=== PATIENT | female | born 1995 | race Caucasian/White ===

== ENCOUNTER 2025-05-06 09:38 | Outpatient (CLI) | payer BC, SELFPAY ==
--- OUTSIDE RECORDS SUMMARY | 2025-03-17 14:30 | XMS_ITS | Encounter Summary ---
Author Organization [facility] Address [address] [place] [address] Care Team Providers Care Wool Fleece Sorter Name Role Phone Ольга Garduno Kaylie CROTES Primary Care Provider [phone] Encounter Details Date Type Department Care Team (Latest Contact Info) Description 03/17/2025 3:30 PM EDT Office Visit [facility] [address], [address] [place] [address] Coni Hamm MD [address] [facility] [address] [place] [address] Intermediate uveitis of right eye (Primary Dx); Pseudophakia of right eye; Nuclear sclerotic cataract, left Social History Tobacco Use Types Packs/Day Years Used Date Smoking Tobacco: Every Day Cigarettes 0.3 18.4 Started: 06/04/2009 Passive Smoke Exposure: Current Smokeless Tobacco: Never Comments:Vape sometimes Alcohol Use Standard Drinks/Week Comments Yes 0 (1 standard drink = 0.6 oz pur e alcohol) socially 1-2 a month PHQ-2 Answer Date Recorded Patient Health Questionnaire-2 Score 0 03/05/2025 PHQ-9 Answer Date Recorded Patient Health Questionnaire-9 Score 0 03/05/2025 CAGE ASSESSMENT Answer Date Recorded Cage unable to access Not on file 02/12/2025 Maximum number of drinks you had on a given occasion in the last month? 2 drinks 02/12/2025 How many alcoholic Beverages do you typically drink in a week? 0 - 7 per week 02/12/2025 Have you ever felt you should CUT down on your d rinking? 0 02/12/2025 Have you been ANNOYED by peo ple criticizing your drinking? 0 02/12/2025 Have you felt GUILTY about your drinking? 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 0 02/12/2025 CAGE Questionnaire Score 0 025 Comments No Sex and Gender Information Value Date Recorded Sex Assigned at Female 01/12/2025 11:46 PM EDT Legal Sex Female 8:10 PM EDT Gender Identity Female 01/12/2025 11:46 PM EDT Sexual Orientation Straight 01/12/2025 11 :46 PM EDT documented as of this encounter Miscellaneous Notes * Progress Notes - Coni Hamm MD - 03/17/2025 3:30 PM EDT PMH: GI disturbance (abdominal pain, hematochezia and diarrhea being worked up by GI team) PCP: Ольга Garduno ([facility], ) Intermediate uveitis right eye Vitreous hemorrhage, right eye - resolved Course: - 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 - Per [facility] records --> History of vitreous hemorrhage/PVD 06/2023 and underwent PPV/EL/Kenalog 07/2023 at [facility], was told she had inflammation that led to traction but this is documented as posterior cyclitis - Had worsening of floaters right eye 02/2024, started on PF QID right eye 03/2024 but then stopped due to sensitivity; Seen 04/15/24 by me without activity - Woke up 05/05 with new photophobia, haze, worsening floaters OD - had cells and keratitic precipitate (KP) this visit, started on PF QID and improved - 07/01 quiet OD, stopped durezol three days prior. Pending initiation of Humira biosimilar - 07/[address] Alcantar with recurrent AC/vit cell on durezol every other day; restarted durezol BID;08/[address] Alcaraz and thought to be quiet on durezol BID and Humira. Tapered off of durezol ~09/2024 - GI symptoms improved on Humira, also following with Neurology for migraines - 03/17/[address] surgery with Dr. Sharpe in the interim OD ROS: - POSITIVE (in bold) - recent weight loss/gain, fevers/chills, night sweats, fatigue, generalized weakness, easy bruising/bleeding, tremor, intolerance to heat or cold, raynaud's, sicca symptoms, nasal ulcers, oral ulcer, cold sores, genital ulcers, sinusitis, nose bleeds, difficulty swallowing, chest pain, shortness of breath, wheezing, cough, blood in sputum, nausea, vomiting, abdominal pain, diarrhea, changes in bowel or bladder patterns, change in urine, weakness/numbness/tingling of limbs/digits, muscle pain, joint aches/pains, rash, hives, sun sensitivity, hair loss, skin discoloration,headache-migraine, dizziness, seizure, tinnitus, hearing loss, depression, anxiety, enlarged lymph nodes, tattoos/inflammation of tattoos. - Family History: Sister possible autoimmune condition ?Lupus but not clear diagnosis; brother withCrohn's - Occupation: Works at [employer] - Tobacco: current smoker less than half ppd - Alcohol Use: Social - Drug use: Denies - Pets/animals: Labradoodle - Foreign travel: Denies - STDs: Denies - Marital status: Single; sexually active single male partner, getting 11/2024 - Incarceration: Denies - Heritage: Unknown, - Miscarriages: Denies - Recent Sick Contacts: Denies - Health otherwise: Otherwise well Lab Workup: - 06/09/23 ESR/CRP wnl - 05/13/24: CBC with borderline high lymphocytes otherwise unremarkable, CMP unremarkable. UA positive for nitrites and 1+ WBC with moderate bacteria, negative for protein; follows with urologist forcystitis - 05/2024 Quantiferon negative, HLA-B27 negative, Syphilis non-reactive; CARLOS 39; Urine B2 73 (wnl) - scanned in media tab - 08/2024 duodenal biopsy no evidence of celiac; +reactive gastropathy on stomach biopsy no H pylori Systemic Imaging Workup: - 06/2023 CXR normal mediastinum, no acute CP process - 02/2017 MRI brain w/wo contrast without acute abnormality - 12/08/24 MRI/MRV: MRI BRAIN: No acute abnormality. No white matter disease; MRV HEAD: Markedly hypoplastic left transverse venous sinus, asymmetric to the right side. Otherwise, the venous sinuses are patent. Ophthalmic Imaging: - FA 05/05: Right eye late disc leakage, diffuse peripheral leakage; left eye wnl - ICG 05/05: Few <1/4DD regions of hypoAF both eyes - 03/17/25 Stable OCT Macula Perivascular thickening OD but good contour, no CME; OS stable/wnl Meds topical/local/systemic: - No topical therapy at the moment - Humira biosimilar 40 mg [id number] Impression/PLAN: - DDx: autoimmune/idiopathic; sarcoid but no granulomatous disease thus far detected - Workup unrevealing - Denied IVO 11/17/24 but no auth required at [facility] for IVTA in the future if needed - Quiet off of durezol and on Humira since ~08/2024; systemic symptoms much improved on Humira so she is happy - S/p CE/IOL OD as below - quiet today with periop steroids now completed - Rheum: Dr. Manuel last 03/05/25. Considering family planning and possibly stopping IMT. I would be ok with her stopping IMT but cannot determine if/when a uveitis flare may occur; however, given largely unilateral involvement we could certainly pursue local steroid therapy PRN instead of Humira even if . She has preferred to remain on Humira thus far due to her other systemic symptom improvement on the medication. - Recommend follow up 3month with me sooner PRN, Christianoiners, OCT Mac and FA transit OD PCIOL OD - 02/16/[address] Sharpe - S/p durezol and per-op PO pred - off of drops - Exam quiet, looks great - Follow up as scheduled with Dr. Sharpe for MRx Cataract left eye - Not visually significant, observe Communicated with Dr. Mar Hamm MD Nailing Machine Operator of Ophthalmology Vitreoretinal Surgery Tobacco Cessation: Tobacco Use: High Risk (03/17/2025) Patient History Smoking Tobacco Use: Every Day Smokeless Tobacco Use: Never Passive Exposure: Current The patient has been counseled on tobacco cessation: Yes documented in this encounter Plan of Treatment Upcoming Encounters Date Type Department Care Team (Late st Contact Info) Description 05/07/2025 3:00 PM EST Procedure Visit [facility] [address] [place] [address] Aaron Garcia PA [address] [place] [address] 06/15/2025 3:00 PM EST Office Visit [facility] [address] [address] Coni Hamm MD [address] [facility] [address] [place] [address] 07/03/2025 10:40 AM EST Office Visit [facility] [address] [place] [address] Delia Cleary PA [address] [facility] [address] [place] [address] 09/01/2025 12:20 PM EDT Office Visit [facility] [address] [place] [address] Selene Rayo MD [address] [facility] [address] [place] [id number] documented as of this encounter Procedures Procedure Name Priority Date/Time Associated Diagnosis Comments OCT, RETINA - OU - BOTH EYES Routine 03/17/2025 4:32 PM EDT Intermediate uveitis of right eye documented in this encounter Results * OCT, Retina - OU - Both Eyes (03/17/2025 4:32 PM EDT) Anatomical Region Laterality Modality Head Optical Coherenc e Tomography Narrative 03/17/2025 4:32 PM EDT Right Eye Quality was good. Scan locations included subfoveal. Progression has been stable. Findings include normal foveal contour. Left Eye Quality was good. Scan locations included subfoveal. Progression has been stable. Findings include normal foveal contour. Notes Perivascular thickening OD stable but good contour OS stable/wnl us Coni Hamm MD OPHTH TOMOGRAPHY Final Res ult documented in this encounter Visit Diagnoses Diagnosis Intermediate uveitis of right eye- Primary Pseudophakia of right eye Lens replaced by other means Nuclear sclerotic cataract, left Migraine without aura and without status migrainosus, not intractable- Primary Bilateral occipital neuralgia Myofascial neck pain documented in this encounter Additional Health Concerns Assessment Noted Time PHQ-9 Depression Total Score: 0 03/05/20 25 10:53 AM EDT A fall risk assessment has been complete d for the patient 03/17/2025 3:52 PM EDT A Body Mass Index follow-up plan has been documented for the patient 03/18/2025 8:45 AM EDT documented as of this encounter Care Teams Wool Fleece Sorter Relationship Specialty Start Date End Date Ольга Garduno DO [address] [place] [address] PCP - General 04/15/24 documented as of this encounter
--- OUTSIDE RECORDS SUMMARY | 2025-03-17 14:50 | XMS_ITS | Encounter Summary ---
Author Organization [facility] Address [address] 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 0 02/12/2025 CAGE Questionnaire Score 0 025 Comments No Sex and Gender Information Value Date Recorded Sex Assigned at Female 01/12/2025 11:46 PM EDT Legal Sex Female 8:10 PM EDT Gender Identity Female 01/12/2025 11:46 PM EDT Sexual Orientation Straight 01/12/2025 11 :46 PM EDT documented as of this encounter Plan of Treatment Upcoming Encounters Date Type Department Care Team (Late st Contact Info) Description 05/07/2025 3:00 PM EST Procedure Visit [facility] [address] [place] [address] Aaron Garcia PA [address] [place] [address] 06/15/2025 3:00 PM EST Office Visit [facility] [address] [place] [address] Coni Hamm MD [address] [place] [address] 07/03/2025 10:40 AM EST Office Visit [facility] [address] [place] [address] Delia Cleary PA [address] [place] [address] 09/01/2025 12:20 PM EDT Office Visit [facility] [address] [place] [phone] Selene Rayo MD [address] [place] [address] documented as of this encounter Procedures Procedure [...] ult documented in this encounter Visit Diagnoses Not on filedocumented in this encounter Additional Health Concerns Assessment Noted Time PHQ-9 Depression Total Score: 0 03/05/20 25 10:53 AM EDT A fall risk assessment has been complete d for the patient 03/17/2025 3:52 PM EDT A Body Mass Index follow-up plan has been documented for the patient 03/18/2025 8:45 AM EDT documented as of this encounter Care Teams Bartender Manager Relationship Specialty Start Date End Date Ольга Garduno DO [address] [place] [address] PCP - General 04/15/24 documented as of this encounter
--- OUTSIDE RECORDS SUMMARY | 2025-03-27 14:50 | XMS_ITS | Encounter Summary ---
Author Organization Healthcare Address [address] [place] [address] Care Team Providers Care Material Stress Tester Name Role Phone Laureen Ольга Kaylie CORTES Primary Care Provider [phone] Encounter Details Date Type Department Care Team (Late st Contact Info) Description 03/27/2025 3:50 PM EDT Office Visit [place] [facility] [address] [place] [address] Delia Cleary, PA [address] [place] [address] Myofascial neck pain (Primary Dx); Bilateral occipital neuralgia; Migraine without aura and without status migrainosus, not intractable Social History Tobacco Use Types Packs/Day Years [...] drink 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 Patient identity has been confirmed using name and date of . Patient confirms they are physically located in [place]. The patient has received and understands the [place] Authorizations and Agreements form and consents to the general terms and conditions of care. The patient has received the Consent for Care Using TeleCare. The risk, benefits, and alternatives of care being provided via telecarewere discussed with the patient who understands and agrees to proceed. The patient was seen via audio and video. Mine Mchugh presents via Video for a follow up regarding 1) Migraine Headaches 2) Occipital Neuralgia 3) Myofascial neck pain Patient was last seen by [facility] on 12/19/2024. 09/17/2024 - [facility] - Consult .1) Occipital Neuralgia - RX Tizanidin 2 mg , 1 at bedtime w/ Diclofenac gel or Tylenol; repeat during day if needed- [facility] Tylenol or RX Diclofenac gel 3% - apply at bedtime + Tizanidine; Can be repeated during day if needed. NO NSAIDS due to possible Crohn's Moist heat (shower / heating pad) to affected area Support neck while sleeping (with pillow / towel). Also support neck while sitting up in chair Referral to Physical therapy & Occupational therapy - to evaluate and treat with available modalities for symptoms Refer for Trigger point injections Massage therapy may be helpful Do NOT go to chiropractor 2) Migraine headache, without aura, without status migrainosus, not intractable STOP Emgality RX Ajovy - to replace Emgality, once every 30 days for headache prevention Continue Ubrelvy 100mg prn for headache rescure Discussed Magnesium headache supplement (ie Migravent) w/ Magnesium / CoQ10 / Riboflavin - purchaseover the counter. Take daily. Give at least 2-3 months before making decision on whether it works. 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 Consider yellow filter for screen - to limit eye irritants Schedule MRI brain w/wo contrast and MRV brain - patient request it be done in [place]. Has never had lumbar puncture (patient complain of headache as pressure inside and pushing out. Thought about IIH as cause of headache) 3) Uveitis Continue to follow with Ophthalmology Continue meds as prescribed Review to see if Papiloedema (+/_) is documented 4) Sinus headache - Tylenol sinus/ headache - continue as long as provides relief Consider request for referral to ENT Steam inhalation - at least once a day Continue Allergy meds / consider allergy nasal spray 12/19/2024 - [facility] .1) Occipital Neuralgia - Cont Tizanidine 2 mg , 1 at bedtime w/ Diclofenac gel or Tylenol; repeat during day if needed- [facility]. Still with NO NSAIDS due to possible Crohn's. Tylenol or RX Diclofenac gel 3% - apply at bedtime + Tizanidine; Can be repeated during day if needed. Moist heat (shower / heating pad) to affected area Support neck while sleeping (with pillow / towel). Also support neck while sitting up in chair Has appt 01/22/2025 for Trigger point injections Massage therapy may be helpful Do NOT go to chiropractor 2) Migraine headache, without aura, without status migrainosus, not intractable Ajovy doesn't seem to be working as well as expected. Place order for Vyepti - infusion - Therapy plan order placed Continue Ubrelvy 100mg prn for headache rescue Discussed Magnesium headache supplement (ie Migravent) w/ Magnesium / CoQ10 / Riboflavin - purchaseover the counter. Take daily. Give at least 2-3 months before making decision on whether it works. 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 Consider yellow filter for screen - to limit eye irritants Has never had lumbar puncture (patient complain of headache as pressure inside and pushing out. 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 A thorough workup was performed evaluating for infectious/autoimmune cause. She is currently on steroid eye drops, plans to to see ophthalmology - Followed by Rheumatology - Takes Humira Continue meds as prescribed Review to see if Papiloedema (+/_) is documented 4) Crohn's disease Followed by [facility] Today, patient presents via video unaccompanied to contributes to the history. Pt reports that headaches are better. Has been receiving Infusion (Vyepti) and Trigger Point Injections. Not sure which one is helping. Reports she can tell when it is starting to wear off. Next appt for infusions / trigger point injection are not scheduled until April. They currently are being received within a few weeks of each other. Ubrelvy - for rescue - 'works sometimes'. Last migraine headache - 2 months ago; States headaches seems to be triggered by weather. Headaches over all have improved tremendously - now headache she is having are NOT really MIGRAINES. These 'not a migraine' headaches, occur about 2 times a week. They are usually relieved with tylenol and her migraine cap. She cannot take NSAIDS due to her Crohn's For Occipital neuralgia - Tizanidine works okay, but is only taking 2mg. Discussed with her that this can be increased to 4mg. She will need new prescription. She has some of the Diclofenac gel at home, has not been using it. Recommend using it every night with the Tizanidine. Reports she is on the computer quite a bit at work. She is not sure if she has blue light filter inher current corrective lenses. She recently had surgery for her uveitis. Will get new prescription for corrective lenses soon - will make sure to get Blue light lenses at that time. She does NOT haveyellow filter on her screens. 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 Past Medical History[1] Family History[2] Surgical History[3] Medications Ordered Prior to Encounter[4] Allergies[5] All medications have been reviewed today. Review of Systems As noted in HPI Objective There were no vitals filed for this visit. Physical Exam Exam observed via Zoom TeleHealth GEN: WDWN NAD HENT: ATNC, NECK: Supple, ROM normal RESP: Normal respiratory effort observed. NEURO: MS: Awake, alert, oriented, good fund of knowledge, good mood with appropriate affect. CN: EOMI full and conjugate. No facial droop. Speech and hearing grossly normal. MOTOR: No abnormal movements. GAIT: Not tested Discussion Summary: Past medical history, lab/imaging results, interval history reviewed. Using shared decision making, the following treatment is recommended: 1) Migraine headache without aura, without status migrainosus, not intractable Headache rescue medication: Ubrelvy 100mg po for headache acute treatment Okay for OTC Tylenol Headache prevention Vyepti 300mg/ml every 3 months Keep Headache diary, ie Migraine Tracker:Gisela Recommend Magnesium supplement- (magnesium / CoQ10/ Riboflavin) daily Stay well hydrated, including electrolyte replacement (diluted gatorade) Maintain usual sleep pattern No new imaging, labs, consults or referrals 2) Occipital Neuralgia/ Myofascial neck pain Increase Tizanidine to 4mg - every hs and during day if needed (bid on prescription). + Diclofenac gel - if still has some at home Use moist heat (hot shower/moist heating pad) Support neck while sleeping / sitting up & driving for long periods of time. (Ie travel pillow) Keep appt for Trigger point injections 05/07/2025 3:00pm Recommend spacing Vyepti and Trigger Point Injections about 6 weeks apart. RTC 3months - Assessment and Plan Diagnosis Plan 1. Myofascial neck pain 2. Bilateral occipital neuralgia 3. Migraine without aura and without status migrainosus, not intractable Telehealth Statement Patient Verification Patient identity has been confirmed using name and date of ? Yes Authorizations and Agreements/Telemedicine Consent sent and consent confirmed? Yes Patient Location: Home/Other Patient confirms they are physically located in [place]? Yes If the patient is not physically located in [place], the provider has confirmed with [facility] thatthe provider is authorized to provide services in patient's stated location? N/A Provider Location: [facility] facility Audio and video or audio only? Audio and video Total visit time: 31 minutes [1] Past Medical History: Diagnosis Date Alpha 1-antitrypsin PiMS phenotype 02/12/2025 [id number] deficiency 02/12/2025 Anemia Anxiety Asthma Blindness 07/2023 Cataract 09/2023 Chronic constipation Chronic pain disorder Cigarette smoker 02/12/2025 Cluster headache 2010 Crohn's disease (CMS/HCC) CTS (carpal tunnel syndrome) 01/02/2025 Depression Dry eyes 04/2023 Eye trauma 04/2023 GERD (gastroesophageal reflux disease) GI hemorrhage Headache Headache, tension-type 2010 Hiatal hernia History of postoperative nausea and vomiting With All Prior Surgeries..... Hyperlipidemia 02/12/2025 Insomnia 2012 Intermediate uveitis of right eye Irritable bowel syndrome Joint pain in both hands 01/02/2025 In both hands, arms, legs (especially shins) Low back pain 08/06/24 Migraine Myopathy Nausea and vomiting 10/02/24 Overactive bladder 09/28/2023 Overweight with body mass index (BMI) 25.0-29.9 02/12/2025 Pain in lower back 09/02/2024 Radiates from right above my butt crack around to lower stomach. Recurrent UTI 05/18/21 Retinal hemorrhage 07/2023 Urinary tract infection Urinary tract infectious disease 04/29/20 Viral upper respiratory tract infection 04/29/20 Weakness of limb 2022 [2] Family History Problem Relation Name Age of Onset Cataracts Maternal Grandmother EvelinaMaye Mascorro Macular degeneration Maternal Grandmother EvelinaMaye Mascorro Glaucoma Maternal Grandmother Molly Mascorro Dementia Maternal Grandmother Molly Mascorro 70 - 79 Migraines Maternal Grandmother Molly Mascorro 30 - 39 Cancer Maternal Grandmother Molly Mascorro 60 - 69 Colon cancer Maternal Grandmother Molly Mascorro Myasthenia gravis Maternal Grandfather Kidney disease Mother Mother Migraines Mother Mother 30 - 39 Asthma Father Renato Autoimmune disease Sister Anu 30 - 39 Anxiety disorder Sister Anu 20 - 29 Fibromyalgia Sister Anu 30 - 39 Immunodeficiency Sister Anu 30 - 39 ADD / ADHD Sister Alia 10 - 19 Crohn's disease Brother Renato Cummings 5 Immunodeficiency Brother Renato Cummings 10 - 19 Colon polyps Brother Renato Cummings Autoimmune disease Brother Renato Cummings 5 [3] Past Surgical History: Procedure Laterality Date CATARACT EXTRACTION W/ INTRAOCULAR LENS IMPLANT Right 02/16/2025 CHOLECYSTECTOMY COLONOSCOPY 11/05/2024 ENDOSCOPY N/A 08/12/2024 EYE SURGERY GALLBLADDER SURGERY OTHER SURGICAL HISTORY 05/2023 Galbladder removal VITRECTOMY Left [4] Current Outpatient Medications on File Prior to Visit Medication Sig Dispense Refill Adalimumab-adaz (Hyrimoz) 40 MG/0.4ML solution auto-injector Inject 40 mg under the skin every 14 days. 0.8 mL 3 bisacodyl (Dulcolax) 10 MG suppository Insert 1 suppository into the rectum daily. Use as directed (Patient taking differently: Insert 1 suppository into the rectum as needed. Use as directed) 12 suppository 0 cyproheptadine (Periactin) 4 MG tablet Take 1 tablet by mouth 2 times a day. 180 tablet 4 dicyclomine (Bentyl) 10 MG capsule Take 1 capsule by mouth 3 times a day. As needed for abdominal cramping 90 capsule 2 difluprednate (Durezol) 0.05 % ophthalmic emulsion Administer 1 drop into the right eye 4 times a day. Increase durezol to one drop 4x/day right eye beginning 1 week prior to cataract surgery 15 mL 1 eptinezumab (Vyepti) 100 MG/ML injection Infuse 3 mL into a venous catheter every 3 months. 1 each 3 erythromycin (Romycin) 5 MG/GM ophthalmic ointment Apply 1 Application to right eye 3 times a day. 3.5 g 1 FLUoxetine (PROzac) 40 MG capsule Take 1 capsule by mouth 1 time each day. linaCLOtide (Linzess) 145 MCG capsule Take 1 capsule by mouth daily before breakfast. 30 capsule 11 Lo Loestrin Fe 1 MG-10 MCG / 10 MCG tablet ondansetron ODT (Zofran-ODT) 4 MG disintegrating tablet Dissolve 1 tablet on the tongue every 8 hours as needed for nausea or vomiting. 20 tablet 2 pantoprazole (Protonix) 40 MG EC tablet Take 1 tablet by mouth 1 time each day. predniSONE (Deltasone) 10 MG tablet TAKE 4 TABLETS BY MOUTH DAILY FOR 7 DAYS, THEN 3 TABLETS DAILY FOR 7 DAYS, THEN 2 TABLETS DAILY FOR 7 DAYS, THEN 1 TABLET DAILY FOR 7 DAYS. 70 tablet 0 tiZANidine (Zanaflex) 2 MG tablet TAKE 1 TABLET BY MOUTH IN THE MORNING AND BEFORE BEDTIME 60 tablet 2 traZODone (Desyrel) 50 MG tablet Take by mouth. Trospium Chloride ER 60 MG capsule sustained-release 24 hr Take by mouth 1 (one) time each day. ubrogepant (Ubrelvy) 100 MG tablet Take 1 tablet by mouth as needed for migraine. After 2 hours, a second dose may be taken if needed. Maximum dose: 200 mg in 24-hour period. 10 each 11 No current facility-administered medications on file prior to visit. [5] Allergies Allergen Reactions Latex Hives, Itching and Rash Sulfa Drugs Anxiety, Headache, Hives, Nausea, Palpitations, Unknown - Patient states they do not know rxn details and Rash Sumatriptan Palpitations and Hives Morphine Diarrhea, Headache and Nausea documented in this encounter Plan of Treatment Upcoming Encounters Date Type Department Care Team (Late st Contact Info) Description 05/07/2025 3:00 PM EST Procedure Visit [place] [facility] [address], [address] [place] [address] Aaron Garcia PA [address] [place] [id number] 06/15/2025 3:00 PM EST Office Visit [facility] [address] [place] [address] Coni Hamm MD [address] [place] [address] 07/03/2025 10:40 AM EST Office Visit [facility] [address], [address] [place] [address] Delia Cleary PA [address] [place] [address] 09/01/2025 12:20 PM EDT Office Visit [facility] [address] [place] [address] Selene Rayo MD [address] [place] [address] documented as of this encounter Visit Diagnoses Diagnosis Myofascial neck pain- Primary Bilateral occipital neuralgia Migraine without aura and without status migrainosus, not intractable Migraine without aura and without status migrainosus, not intractable- Primary Bilateral occipital neuralgia Myofascial neck pain documented in this encounter Additional Health Concerns Assessment Noted Time PHQ-9 Depression Total Score: 0 03/05/20 25 10:53 AM EDT A fall risk assessment has been complete d for the patient 03/17/2025 3:52 PM EDT A Body Mass Index follow-up plan has been documented for the patient 03/27/2025 4:48 PM EDT documented as of this encounter Care Teams Material Stress Tester Relationship Specialty Start Date End Date Ольга [place] [address] PCP - General 04/15/24 documented as of this encounter
--- OUTSIDE RECORDS SUMMARY | 2025-04-16 15:00 | XMS_ITS | Encounter Summary ---
Author Organization Healthcare Address [address] [place] [address] Care Team Providers Care Sanitizer Name Role Phone Ольга Garduno DO Primary Care Provider [phone] Reason for Visit * Reason Comments OP Infusion * Episode Based Medications (Routine) - Authorized Specialty Diagnoses / Procedures Referred By Contac t Referred To Contact Infusion Clinic Diagnoses Migraine without aura and without status migrainosus, not intractable Procedures [facility] INJ. EPTINEZUMAB-JJMR 1 MG Delia Cleary, PA [address] [place] [address] Phone: tel: fax: [facility] [address] [place] [address] Phone: tel: fax: Referral ID Status Reason Start Date Expiration Date V isits Requested Visits Authorized [id number] Authorized 12/30/2024 07/01/2026 1 2 Encounter Details Date Type Department Care Team (Latest Contact Info) Description 04/16/2025 3:00 PM EST - 04/16/2025 11:59 PM EST Hospital Encounter [facility] [address] [place] [address] Migraine without aura and without status migrainosus, not intractable (Primary Dx); Migraine without aura, not refractory Discharge Disposition: Home or Self Care Social History Tobacco Use Types Packs/Day Years [...] drink first t destini in the morning (EYE-SOFT CRAB SHEDDER) to steady your nerves or to get rid of a hangover? 0 02/12/2025 CAGE Questionnaire Score 0 025 Comments No Sex and Gender Information Value Date Recorded Sex Assigned at Female 01/12/2025 11:46 PM EDT Legal Sex Female 8:10 PM EDT Gender Identity Female 01/12/2025 11:46 PM EDT Sexual Orientation Straight 01/12/2025 11 :46 PM EDT documented as of this encounter Last Filed Vital Signs Vital Sign Reading Time Taken Comments Blood Pressure 119/76 04/16/2025 4:04 PM EST Pulse 92 04/16/2025 4:04 PM EST Temperature 36.6 C (97.9 F) 04/16/2025 3:09 PM EST Respiratory Rate 16 04/16/2025 3:09 PM EST Oxygen Saturation - - Inhaled Oxygen Concentration - - Weight 64.8 kg (142 lb 13.7 oz) 04/16/2025 3:09 PM EST Height 157.5 cm (5' 2 ) 04/16/2025 3:09 PM EST Body Mass Index 26.13 04/16/2025 3:09 PM EST documented in this encounter Medications at Time of Discharge Adalimumab-adaz (Hyrimoz) 40 MG/0.4ML solution auto-injectorIndica tions:Panuveitis, unspecified laterality Inject 40 mg under the skin every 14 days. 0.8 mL 3 5 bisacodyl (Dulcolax) 10 MG suppository Insert 1 suppository into the rectum daily. Use as directed 12 suppository 5 12/24/19 26 cyproheptadine (Periactin) 4 MG tablet Take 1 tablet by mouth 2 times a day. 180 tablet 4 5 11/22/19 26 dicyclomine (Bentyl) 10 MG capsule Take 1 capsule by mouth 3 times a day. As needed for abdominal cramping 90 capsule 2 5 difluprednate (Durezol) 0.05 % ophthalmic emulsion Administer 1 drop into the right eye 4 times a day. Increase durezol to one drop 4x/day right eye beginning 1 week prior to cataract surgery 15 mL 1 5 eptinezumab (Vyepti) 100 MG/ML injection Infuse 3 mL into a venous catheter every 3 months. 1 each 3 5 erythromycin (Romycin) 5 MG/GM ophthalmic ointment Apply 1 Application to right eye 3 times a day. 3.5 g 1 5 FLUoxetine (PROzac) 40 MG capsule Take 1 capsule by mouth 1 time each day. 4 linaCLOtide (Linzess) 145 MCG capsule Take 1 capsule by mouth daily before breakfast. 30 capsule 11 5 11/06/19 26 Lo Loestrin Fe 1 MG-10 MCG / 10 MCG tablet 0 ondansetron ODT (Zofran-ODT) 4 MG disintegrating tablet Dissolve 1 tablet on the tongue every 8 hours as needed for nausea or vomiting. 20 tablet 2 5 pantoprazole (Protonix) 40 MG EC tablet Take 1 tablet by mouth 1 time each day. 4 tiZANidine (Zanaflex) 2 MG tabletIndications:M yofascial neck pain TAKE 1 TABLET BY MOUTH IN THE MORNING AND BEFORE BEDTIME 60 tablet 2 5 tiZANidine (Zanaflex) 4 MG tablet Take 1 tablet by mouth 2 times a day as needed for muscle spasms. Use every night. 60 tablet 2 5 traZODone (Desyrel) 50 MG tablet Take by mouth. Trospium Chloride ER 60 MG capsule sustained-release 24 hr Take by mouth 1 (one) time each day. 5 ubrogepant (Ubrelvy) 100 MG tablet Take 1 tablet by mouth as needed for migraine. After 2 hours, a second dose may be taken if needed. Maximum dose: 200 mg in 24-hour period. 10 each 11 5 documented as of this encounter Miscellaneous Notes * Yola Wright RN - 04/16/2025 3:31 PM EST Images from the original note were not included. [id number] Eptinezumab-jjmr Injection WHY is this medicine prescribed? Eptinezumab-jjmr injection is used to help prevent migraine headaches (severe, throbbing headaches that may cause nausea and sensitivity to sound or light). Eptinezumab-jjmr injection is in a class of medications called monoclonal antibodies. It works by blocking the action of a certain natural substance in the body that causes migraine headaches. HOW should this medicine be used? Eptinezumab-jjmr injection comes as a solution (liquid) to inject intravenously (into a vein) over 30 minutes by a doctor or nurse in a medical facility or infusion center. It is usually given every 3 months. Your doctor may need to interrupt or stop your infusion if you experience certain side effects. Tell your doctor immediately if you experiences any of the following symptoms during your infusion: itching, rash, flushing, shortness of breath, wheezing, or face swelling. Ask your pharmacist or doctor for a copy of the accounting office manager's information for the patient. Are there OTHER USES for this medicine? This medication may be prescribed for other uses; ask your doctor or pharmacist for more information. What SPECIAL PRECAUTIONS should I follow? Before receiving eptinezumab-jjmr injection, ? tell your doctor or pharmacist if you are allergic to this drug, any part of this drug, or any other drugs, foods or substances. Tell your doctor or pharmacist about the allergy and what symptoms you had. ? tell your doctor and pharmacist what other prescription and nonprescription medications, vitamins, nutritional supplements, and herbal products you are taking or plan to take. ? tell your doctor if you have or have ever had high blood pressure or circulation problems in yourfingers and toes such as Raynaud's disease (fingers and toes feel numb and change skin color to white or blue when exposed to cold temperatures or stress). ? tell your doctor if you are , plan to become , or are . If you become while using eptinezumab-jjmr injection, call your doctor. What SPECIAL DIETARY instructions should I follow? Unless your doctor tells you otherwise, continue your normal diet. What SIDE EFFECTS can this medicine cause? Some side effects can be serious. If you experience any of these symptoms, call your doctor immediately or get emergency medical treatment: ? rash; hives; itching; flushing of the face; swelling of your face, mouth, tongue, or throat; difficulty breathing ? numb, cold, painful, or discolored fingers or toes Eptinezumab-jjmr injection may cause other side effects. Call your doctor if you have any unusual problems while taking this medication. If you experience a serious side effect, you or your doctor may send a report to the Food and Drug Administration's (FDA) MedWatch Adverse Event Reporting program online (https://www.fda.gov/Safety/MedWatch) or by phone ( ). What should I do in case of OVERDOSE? In case of overdose, call the poison control helpline at . Information is also available online at https://www.poisonhelp.org/help. If the victim has collapsed, had a seizure, has trouble breathing, or can't be awakened, immediately call emergency services at 232. What OTHER INFORMATION should I know? Keep all appointments with your doctor. Your blood pressure should be checked regularly. You should keep a headache diary by writing down when you have headaches. Be sure to share this information with your doctor. Keep a written list of all of the prescription and nonprescription (pitq-kvo-rktcmax) medicines, vitamins, minerals, and dietary supplements you are taking. Bring this list with you each time you visit a doctor or if you are admitted to the hospital. You should carry the list with you in case of sulema rgencies. Brand Name(s): ? Vyepti?? This report on medications is for your information only, and is not considered individual patient advice. Because of the changing nature of drug information, please consult your physician or pharmacist about specific clinical use. The [place] [employer] represents that the information provided hereunder was formulated with a reasonable standard of care, and in conformity with professional standards in the field. The [place] [employer] makes no representations or warranties, express or implied, including, but not limited to, any implied warranty of merchantability and/or fitness for a particular purpose, with respect to such information and specifically disclaims all such warranties. Users are advised that decisions regarding drug therapy are complex medical decisions requiring the independent, informed decision of an appropriate health progressive care nurse, and the information is provided for informational purposes only. The entire monograph for a drug should be reviewed for a thorough understanding of the drug's actions, uses and side effects. The [place] [employer] does not endorse or recommend the use of any drug.The information is not a substitute for medical care. AHFS?? Patient Medication Information?. ?? Copyright, 2023. The [employer]??, [address], [address], [place], [place]. All Rights Reserved. Duplication for commercial use must be authorized by [facility]. Selected Revisions: January 16, 2025. AHFS?? Patient Medication Information?. ?? Copyright, 2024 * Progress Notes - Chloe Springer APRN, DNP - 04/16/2025 3:00 PM EST [facility] NOREEN Note I was physically on-site during the entirety of the infusion, and was available to manage acute infusion reactions as needed. Chloe Springer APRN, VI[facility] documented in this encounter Plan of Treatment Upcoming Encounters Date Type Department Care Team (Late st Contact Info) Description 05/07/2025 3:00 PM EST Procedure Visit [facility] [address] [place] [address] Aaron Garcia PA [address] [place] [address] 06/15/2025 3:00 PM EST Office Visit [facility] [address] [facility] [place] [address] Coni Hamm MD [address] [facility] [address] [place] [address] 07/03/2025 10:40 AM EST Office Visit [facility] [address] [place] [address] Delia Cleary PA [address] [facility] [address] [place] [address] 09/01/2025 12:20 PM EDT Office Visit [facility] [address] [place] [address] Selene Rayo MD [address] [facility] [address] [place] [address] documented as of this encounter Visit Diagnoses Diagnosis Migraine without aura and without status migrainosus, not intractable- Primary Migraine without aura, not refractory Migraine without aura and without status migrainosus, not intractable- Primary Bilateral occipital neuralgia Myofascial neck pain documented in this encounter Administered Medications Inactive Administered Medications - up to 3 most recent administrations Medication Order MAR Action Action Date Dose Rate Site eptinezumab (Vyepti) 100 mg in sodium chloride 0.9 % 100 mL IVPB 100 mg, Intravenous, Once, 1 dose, On Jasmin 04/16/25 at 1545, Administer over 30 Minutes, RoutineIndications:Migraine without aura and without status migrainosus, not intractable New Bag 04/16/2025 3:37 PM EST 100 mg 222 mL/hr documented in this encounter Additional Health Concerns Assessment Noted Time PHQ-9 Depression Total Score: 0 03/05/20 25 10:53 AM EDT A fall risk assessment has been complete d for the patient 04/16/2025 3:10 PM EST A Body Mass Index follow-up plan has been documented for the patient 04/16/2025 3:31 PM EST documented as of this encounter Care Teams Sanitizer Relationship Specialty Start Date End Date Ольга Garduno DO [address] [place] [address] PCP - General 04/15/24 documented as of this encounter
--- OUTSIDE RECORDS SUMMARY | 2025-05-06 09:41 | XMS_ITS | Encounter Summary ---
Author Organization [facility] Address [address] [place] [address] Care Team Providers Care Nursing Unit Clerk Name Role Phone Ольга Garduno DO Primary Care Provider Reason for Visit * Reason Onset Date Comments New Med Request 02/26/2025 Encounter Details Date Type Department Care Team (Late st Contact Info) Description 02/26/2025 Telephone [facility] [address] [facility] [place] [address] Ольга Garduno DO [address] [place] [address] New Med Request Social History Tobacco Use Types Packs/Day Years Used Date Smoking Tobacco: Every Day Cigarettes 0.3 10 Smokeless Tobacco: Never Alcohol Use Standard Drinks/Week Comments Not Currently 0 (1 standard drink = 0.6 oz pur e alcohol) ocassionally PHQ-2 Answer Date Recorded Retired PHQ-9: Brief Depression Severity Measure Score 0 08/09/2022 Abuse Screen Answer Date Recorded Feels Unsafe at Home or Work/School no 06/09/2023 Feels Threatened by Someone no 11/2023 Does Anyone Try to Keep You From Having Contact with Others or Doing Things Outside Your Home? no 06/09/2023 Physical Signs of Abuse Present no 06/09/2023 PHQ-2 Answer Date Recorded Patient Health Questionnaire-9 Score 5 01/20/2025 Comments No Sex and Gender Information Value Date Recorded Sex Assigned at Female 08/18/2024 9:36 AM EDT Legal Sex Female 9:22 AM EDT Gender Identity Not on file Sexual Orientation Straight 08/18/2024 9: 36 AM EDT Occupation Industry Job Start Date Job End Date Not on file Not on file Not on file Not on file documented as of this encounter Miscellaneous Notes * Telephone Encounter - Yola Mendes RegSched Rep - 02/26/2025 2:48 PM EDT PATIENT IS GOING TO REACH OUT TO HER SURGEON AND SEE IF THEY WILL HELP HER. IF NOT SHE WILL CALL THE OFFICE BACK IF THEY WONT HELP. * Telephone Encounter - Saul Barajas - 02/26/2025 1:35 PM EDT Caller: Mine Mchugh Relationship: Self Best call back number: [phone] What medication are you requesting: SOMETHING TO TREAT YEAST INFECTION/THRUSH IN MOUTH What are your current symptoms: THRUSH IN MOUTH How long have you been experiencing symptoms: FEW WEEKS Have you had these symptoms before: [x] Yes [] No Have you been treated for these symptoms before: [x] Yes [] No If a prescription is needed, what is your preferred pharmacy and phone number: [id number] - [place], [place] - [address] - [phone] [facility] [phone] Additional notes: PATIENT HAS CALLED REQUESTING IF PCP CAN CALL SOMETHING IN TO TREAT YEAST INFECTION/THRUSH IN MOUTH. PATIENT HAD CATARACT SURGERY AND WAS PUT ON A STEROID AND HAS DEVELOPED THRUSH IN HER MOUTH. PATIENT IS REQUESTING A CALL BACK ISAI TO LET HER KNOW IF SOMETHING WILL BE CALLED INTO PHARMACY. * Telephone Encounter - Saul Barajas - 02/26/2025 1:33 PM EDT PATIENT HAS CALLED AD STATED SHE HAD CATARACT SURGERY LAST WEEK. PATIENT HAS DEVELOPED THRUSH IN MOUTH FORM TAKING STEROID. PATIENT SUFFERS FROM UVITIS. documented in this encounter Plan of Treatment Upcoming Encounters Date Type Department Care Team (Late st Contact Info) Description 05/08/2025 11:45 AM EST Office Visit [facility] [address] [place] [address] Ольга Garduno DO [address] [place] [address] 01/27/2026 8:30 AM EDT Office Visit [facility] [address] [place] [address] Josiane Tanner MD [address] [address] documented as of this encounter Visit Diagnoses Not on filedocumented in this encounter Care Teams Nursing Unit Clerk Relationship Specialty Start Date End Date Ольга Garduno DO [address] [place] [address] PCP - General Family Medicine 05/18/21 documented as of this encounter
--- OUTSIDE RECORDS SUMMARY | 2025-05-06 09:41 | XMS_ITS | Clinical Summary ---
Author Organization [facility] Address [address] [place] [address] Care Team Providers Care Cell Tuber Hand Name Role Phone Ольга Garduno Primary Care Provider Allergies Active Allergy Reactions Criticality Noted Date Comments Sumatriptan Palpitations Low 03/16/2016 Latex Hives,Itching,Rash Medium 2024 Sulfa Antibiotics Hives Low 03/16/2016 Sulfamethoxazole-Trimethoprim Hives 2023 Medications * This document contains information received from the source organization and may not represent a complete record from that organization. albuterol sulfate HFA 108 (90 Base) MCG/ACT inhaler Inhale 2 puffs Every 4 (Four) Hours As Needed for Wheezing or Shortness of Air. 8 g 1 3 Active ubrogepant (Ubrelvy) 100 MG tabletIndications :Acute migraine Take one tablet by mouth at the onset of headache. May repeat in 2 hours if headache persists. No more than 2 doses in 24 hours. 16 tablet 2 4 Active Adalimumab-adaz 40 MG/0.4ML solution auto-injector Inject 40 mg under the skin into the appropriate area as directed. 5 Active dicyclomine (BENTYL) 10 MG capsule Take 1 capsule by mouth. 5 Active trospium 60 MG capsule sustained-release 24 hr capsule Take 1 capsule by mouth Daily. 5 Active pantoprazole (PROTONIX) 40 MG EC tabletIndications :Chronic GERD Take 1 tablet by mouth Daily. 90 tablet 3 5 Active FLUoxetine (PROzac) 40 MG capsuleIndication s:Anxiety Take 1 capsule by mouth Daily. 90 capsule 3 5 Active traZODone (DESYREL) 50 MG tablet TAKE 1-2 TABLETS BY MOUTH EVERY NIGHT 60 tablet 5 5 Active bisacodyl (DULCOLAX) 5 MG EC tablet Take all 4 tablets at 4 PM on day before colonoscopy 5 Active Linzess 145 MCG capsule capsule Take 1 capsule by mouth Every Morning Before Breakfast. Active cyproheptadine (PERIACTIN) 4 MG tablet Take 1 tablet by mouth 2 (Two) Times a Day. 5 026 Active Fremanezumab-vfrm 225 MG/1.5ML solution prefilled syringe Inject 225 mg under the skin into the appropriate area as directed Every 30 (Thirty) Days. 5 Active Lo Loestrin Fe 1 MG-10 MCG / 10 MCG tabletIndications :Encounter for surveillance of contraceptive pills Take 1 tablet by mouth Daily. 84 tablet 3 5 Active ondansetron (ZOFRAN) 4 MG tabletIndications :Nausea TAKE 1 TABLET BY MOUTH EVERY 6 HOURS NEEDED FOR NAUSEA OR VOMITING. 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 She will notify me if current dose is not effective and will increase to 25 mg Anxiety 05/18/2021 Encounters Date Type Department Care Team Description 02/26/2025 Telephone [facility] [address] [address] Ольга Garduno DO New Med Request 02/05/2025 Refill [facility] [address] [address] Aliza Valderrama PA Nausea from Last 3 Months Immunizations Immunization Administration Dates Next Due FluMist 2-49yrs (Nasal) 02/26/2013,05/02/2012 Hepatitis A 08/14/2018,01/28/2018 Hpv9 06/18/2023,12/11/2022,08/24/2022 Meningococcal Conjugate 06/10/2012 Tdap 05/19/2019 Family History Medical History Relation Name Comments Asthma Father Renato Vision loss Maternal Grandmother Molly Mascorro Anxiety disorder Sister Anu Mchugh Breast cancer Neg Hx Colon cancer Neg Hx Ovarian cancer Neg Hx Uterine cancer Neg Hx Relation Name Status Comments Father Renato Alive Maternal Grandmother Molly Mascorro Alive Mother Alive Sister Anu Mchugh Alive Social History Tobacco Use Types Packs/Day Years Used Date Smoking Tobacco: Every Day Cigarettes 0.3 10 Smokeless Tobacco: Never Tobacco Cessation:Ready to Q uit: Not Asked; Counseling Given: Not Answered Alcohol Use Standard Drinks/Week Comments Not Currently [...] file Not on file Not on file Last Filed Vital Signs Vital Sign Reading Time Taken Comments Blood Pressure 110/72 01/21/2025 8:45 AM EDT Pulse 86 08/20/2024 10:11 AM EDT Temperature 36.8 C (98.2 F) 08/20/2024 10:11 AM EDT Respiratory Rate 16 08/20/2024 10:11 AM EDT Oxygen Saturation 96% 08/20/2024 10:11 AM EDT Inhaled Oxygen Concentration - - Weight 64 kg (141 lb) 01/21/2025 8:45 AM EDT Height 157.5 cm (5' 2 ) 01/21/2025 8:45 AM EDT Body Mass Index 25.79 01/21/2025 8:45 AM EDT Plan of Treatment Upcoming Encounters Date Type Department Care Team (Late st Contact Info) Description 05/08/2025 11:45 AM EST Office Visit [facility] [address] [place] [address] Ольга Garduno DO [address] [place] [address] 01/27/2026 8:30 AM EDT Office Visit [facility] OBGYN [address] [place] [address] Josiane Tanner MD [address] [phone] Health Maintenance Due Date Last Done Comments Pneumococcal Vaccine 0-49 (1 of 2 - PCV) 2012 ANNUAL PHYSICAL 01/01/2025 01/02/2024 INFLUENZA VACCINE 01/02/2025 02/13/2018, , 05/02/2012 LIPID PANEL 08/22/2025 08/22/2024, 10/03, 07/13/2021 Annual Gynecologic Pelvic an d Breast Exam 01/22/2026 01/21/2025, 10/26/2020 PAP SMEAR 01/22/2028 01/21/2025, 01/02, 06/18/2023, Additional history exists TDAP/TD VACCINES (2 - Td or Tdap) 05/19/2029 019 HEPATITIS C SCREENING Completed 06/06/2024, 022 Procedures Procedure Name Priority Date/Time Associated Diagnosis Comments SCANNED - IMAGING 04/23/2025 LIQUID-BASED PAP SMEAR WITH HPV GENOTYPING REGARDLESS OF INTERPRETATION, [facility] ([facility]) Routine 01/21/2025 9:57 AM EDT High grade squamous intraepithelial lesion (HGSIL), grade 3 DURGA, on biopsy of cervix Women's annual routine gynecological examination LIPID PANEL WITH LDL/HDL RATIO Routine 08/22/2024 12:01 PM EDT HEPATITIS PANEL, ACUTE Routine 01/10/2022 4:08 PM EDT SCANNED - PAP SMEAR Routine 10/26/2020 12:00 AM EDT from Last 3 Months or Most Recently Relevant to Health Maintenance Results * IMAGING SCANNED (04/23/2025) Anatomical Region Laterality Modality Radiographic Jennifer ging Ольга Garduno DO IMG DIAGNOSTIC IMAGING ORDGregory CRUZ Final Result * LIQUID-BASED PAP SMEAR WITH HPV GENOTYPING REGARDLESS OF INTERPRETATION ([facility]) (01/21/2025 9:57 AM EDT) Reference Lab Report [facility]AL [facility] SPECIALIST CYTOLOGY REPORT ---- DIAGNOSIS: Negative for intraepithelial lesion or malignancy Multiple factors can influence accuracy of Pap tests; therefore, screening at regular intervals is necessary for early cancer detection. ---- Adequacy SATISFACTORY FOR EVALUATION Transformation zone is present. Source CERVICAL/ENDOCERVI GARRETT LMP None provided CLINICAL HISTORY: Routine control pill, HGSIL - grade 3 DURGA on Bx of cervix, Tobacco abuse The pap smear is a screening test with limited sensitivity, and false negative tests results can occur. ThinPrep Pap imagined by Tugg (AI assisted system). Aptima HPV: Negative The Aptima HPV assay is an in vitro nucleic acid amplification test for the qualitative detection of E6/E7 viral messenger RNA from 14 high risk types of HPV in cervical specimens. The high risk HPV types detected include: 16, 18, 31, 33, 35, 39, 45, 51, 52, 56, 58, 59, 66 68 Signed by TOSHA MILLER (ASCP) 01/22/2025 12:54 PM EDT [facility] ThinPrep Vial Collection / Unknown 01/21/2025 9:57 AM EDT 01/21/2025 9:57 AM EDT Josiane Tanner MD PATHOLOGY/CYTOLOGY ORDERABLES Fi nal Result [facility]
[address] [place] [address], * (ABNORMAL) Lipid Panel With LDL / HDL Ratio (08/22/2024 12:01 PM EDT) Total Cholesterol 207(H) 100 - 199 mg/dL [facility] Triglycerides 184(H) 0 - 149 mg/dL [facility] HDL Cholesterol 35(L) >39 mg/dL [facility] VLDL Cholesterol Garrett 33 5 - 40 mg/dL [facility] LDL Chol Calc (NIH) 139(H) 0 - 99 mg/dL [facility] LDL/HDL RATIO 4.0(H) 0.0 - 3.2 ratio [facility] Comment: LDL/HDL Ratio Men Women 1/2 Avg.Risk 1.0 1.5 Avg.Risk 3.6 3.2 2X Avg.Risk 6.2 5.0 3X Avg.Risk 8.0 6.1 08/22/2024 12:0 1 PM EDT 08/22/2024 Narrative [facility] (AMBULATORY) - 08/23/2024 5:07 AM EDT Performed at: 01 [facility] [address] [place] [address] [phone] Neon Sign Installer: Reynold Spence PhD, Phone: [phone] Specimen Comment: A courtesy copy of this report has been sent to [phone] Patient Fasting: Y Ольга Garduno DO LAB BLOOD ORDERABLES Final Result [facility] (AMBULATORY) [address] [place] [address], [facility] [address] [place] [address], * Hepatitis Panel, Acute (01/10/2022 4:08 PM EDT) Hep A IgM Negative Negative [facility] Hepatitis B Surface Ag Negative Negative [facility] Hep B Core IgM Negative Negative [facility] Hepatitis C Ab 0.1 0.0 - 0.9 s/co ratio [facility] 01/10/2022 4:08 PM EDT 01/10/2022 Narrative [facility] (AMBULATORY) - 01/11/2022 9:11 AM EDT Performed at: [address] [place] [address] [place] [address] [phone] Neon Sign Installer: Reynlod Spence PhD, Phone: [phone] Aliza PÉREZ LAB BLOOD ORDERABLES Final Res ult [facility] (AMBULATORY) [address] [place] [address], [facility] [address] [place] [address], [place] [phone] * PAP SMEAR SCANNED (10/26/2020 12:00 AM EDT) Historical Provider MD WRIGHT CHART REVIEW TABS Naz l Result from Last 3 Months or Most Recently Relevant to Health Maintenance Insurance [employer] Member Subscriber Plan / Payer (Ef fective 2023-Present) Name:Mine Mchugh Relation to Subscriber:Self Name:Mchugh Mine Benjamin Payer ID:[id number] (NAIC) Type:Not on file Address: [facility] [id number] [id number] Care Teams Cell Tuber Hand Relationship Specialty Start Date End Date Ольга Garduno DO [address] [place] [address] PCP - General Family Medicine 05/18/21
--- OUTSIDE RECORDS SUMMARY | 2025-05-06 09:42 | XMS_ITS | Encounter Summary ---
Author Organization [facility] Address [address] [place] [address] Care Team Providers Care Boiler Cleaner Name Role Phone Олгьа Garduno DO Primary Care Provider [phone] Encounter Details Date Type Department Care Team (Late st Contact Info) Description 08/26/2024 Results Follow-Up [facility] [address] [facility] [place] [address] Ольга Garduno DO [address] [place] [address] Social History Tobacco Use Types Packs/Day Years [...] 06/09/2023 PHQ-2 Answer Date Recorded Patient Health Questionnaire-2 Score 0 08/20/2024 Comments No Sex and Gender Information Value Date Recorded Sex Assigned at Female 08/18/2024 9:36 AM EDT Legal Sex Female 9:22 AM EDT Gender Identity Not on file Sexual Orientation Straight 08/18/2024 9: 36 AM EDT Occupation Industry Job Start Date Job End Date Not on file Not on file Not on file Not on file documented as of this encounter Plan of Treatment Upcoming Encounters Date Type Department Care Team (Late st Contact Info) Description 05/08/2025 11:45 AM EST Office Visit [facility] [address] [place] [address] Ольга Garduno DO [address] [place] [address] 01/27/2026 8:30 AM EDT Office Visit [facility] O[facility] [address] [place] [address] Josiane Tanner MD [address] [phone] documented as of this encounter Visit Diagnoses Not on filedocumented in this encounter Care Teams Boiler Cleaner Relationship Specialty Start Date End Date Ольга Garduno DO [address] [place] [address] PCP - General Family Medicine 05/18/21 documented as of this encounter
--- OUTSIDE RECORDS SUMMARY | 2025-05-06 09:42 | XMS_ITS | Encounter Summary ---
Author Organization [facility] Address [address] 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) to steady your nerves or to get [...] Description 05/07/2025 3:00 PM EST Procedure Visit [facility] [address], [address] [place] [address] Aaron Garcia PA [address] [facility] [address] [place] [address] 06/15/2025 3:00 PM EST Office Visit [facility] [address] [place] [address] Coni Hamm MD [address] [facility] [address] [place] [address] 07/03/2025 10:40 AM EST Office Visit [facility] [address] [place] [address] Delia Cleary PA [address] [place] [address] 09/01/2025 12:20 PM EDT Office Visit [facility] Medicine Specialties [address], [address] [place] [address] Selene Rayo MD [address] [place] [address] documented as of this encounter Visit Diagnoses Not on filedocumented in this encounter Additional Health Concerns Assessment Noted Time PHQ-9 Depression Total Score: 0 10/02/20 25 10:53 AM EDT A fall risk assessment has been complete d for the patient 04/16/2025 3:10 PM EST A Body Mass Index follow-up plan has been documented for the patient 04/16/2025 3:31 PM EST documented as of this encounter Care Teams Director Of Convention Services Relationship Specialty Start Date End Date Ольга Graduno DO [address] [place] [address] PCP - General 04/15/24 documented as of this encounter
--- OUTSIDE RECORDS SUMMARY | 2025-05-06 09:42 | XMS_ITS | Encounter Summary ---
Author Organization Healthcare Address [address] [place] [address] Care Team Providers Care Escape Wheel Tooth Cutter Name Role Phone LaureenIssac celesitnayla Kaylie CORTES Primary Care Provider [phone] Encounter Details Date Type Department Care Team (Latest Contact Info) Description 09/01/2024 Lab Requisition [facility] [address] [place] [address] Kandi Babcock MD [address] [place] [address] Encounter for screening for upper gastrointestinal disorder Social History Tobacco Use Types Packs/Day Years Used Date Smoking Tobacco: Every Day Cigarettes 0.3 15.9 Started: 2009 Passive Smoke Exposure: Current Smokeless Tobacco: Never Comments:Vape sometimes Alcohol Use Standard Drinks/Week Comments Never 0 (1 standard drink = 0.6 oz pur e alcohol) PHQ-2 Answer Date Recorded Patient Health Questionnaire-2 Score 1 08/29/2024 PHQ-9 Answer Date Recorded Patient Health Questionnaire-9 Score 4 08/29/2024 Comments Unknown Sex and Gender Information Value Date Recorded Sex Assigned at Female 01/12/2025 11:46 PM EDT Legal Sex Female 8:10 PM EDT Gender Identity Female 01/12/2025 11:46 PM EDT Sexual Orientation Straight 01/12/2025 11 :46 PM EDT documented as of this encounter Plan of Treatment Upcoming Encounters Date Type Department Care Team (Late st Contact Info) Description 05/07/2025 3:00 PM EST Procedure Visit [facility] [address] [place] [address] Aaron Garcia PA [address] [place] [address] 06/15/2025 3:00 PM EST Office Visit [facility] [address] [place] [address] Coni Hamm MD [address] [place] [address] 07/03/2025 10:40 AM EST Office Visit [facility] [address], [address] [place] [address] Delia Cleary PA [address] [place] [address] 09/01/2025 12:20 PM EDT Office Visit [facility] Medicine Specialties [address], [address] [place] [address] Selene Rayo MD [address] [facility] [address] [place] [address] documented as of this encounter Procedures Procedure Name Priority Date/Time Associated Diagnosis Comments SURGICAL PATHOLOGY EXAM Routine 09/01/2024 Encounter for screening for upper gastrointestinal disorder documented in this encounter Results * Surgical Pathology Exam (09/01/2024) Case Report Surgical Pathology Case: [id number] Authorizing Provider: Kandi Babcock MD Collected: 09/01/2024 Ordering Location: [facility] Lab Received: 09/01/2024 1330 Pathologist: Ashlee Palacios MD Specimens: A) - Duodenum, duodenum biopsy B) - Gastric, gastric biopsy 09/02/2024 2:08 PM EDT [facility] Final Diagnosis A. SMALL INTESTINE, DUODENUM, BIOPSY: - NO PATHOLOGIC ABNORMALITIES. - NO EVIDENCE OF CELIAC DISEASE. B. STOMACH, BIOPSY: - REACTIVE GASTROPATHY. - NO H. PYLORI ORGANISMS IDENTIFIED ON H&E SLIDE. 09/02/2024 2:08 PM EDT [facility] at 1408 EDT Clinical Information Encounter for screening for upper gastrointestinal disorder Abdominal pain Nausea Normal EGD 09/02/2024 2:08 PM EDT [facility] Gross Description A. DUODENUM BIOPSY Received in formalin labeled duodenum biopsy are 5 scott-brown soft tissue fragments measuring 0.4 to 0.5 cm in greatest dimension. Entirely submitted in cassette A1. Cold Time: 0 Sarah M Teagan B. GASTRIC BIOPSY Received in formalin labeled gastric biopsy are 6 scott-brown soft tissue fragments measuring 0.2 to 0.4 cm in greatest dimension. Entirely submitted in cassette B1 to B2. Cold Time: 0 Sarah M Teagan 09/02/2024 2:08 PM EDT [facility] Note: A resident was involved in the service. I attest I examined the relevant preparations for the specimens and confirmed the diagnosis or interpretation. 09/02/2024 2:08 PM EDT [facility] Tissue Stomach structure / Unknown 09/01/2024 09/01/2024 1:30 PM EDT Tissue specimen (specimen) Stomach structure / Unknown 09/01/2024 09/01/2024 1:30 PM EDT us Knadi Babcock MD LAB PATHOLOGY ORDERABLES Final Result [facility] [address] [place] [address] documented in this encounter Visit Diagnoses Diagnosis Encounter for screening for upper gastrointestinal disorder Migraine without aura and without status migrainosus, not intractable- Primary Bilateral occipital neuralgia Myofascial neck pain documented in this encounter Additional Health Concerns Assessment Noted Time PHQ-9 Depression Total Score: 4 08/30/19 25 3:11 PM EDT A fall risk assessment has been complete d for the patient 08/29/2024 3:10 PM EDT A Body Mass Index follow-up plan has been documented for the patient 08/29/2024 5:08 PM EDT documented as of this encounter Care Teams Escape Wheel Tooth Cutter Relationship Specialty Start Date End Date Ольга Garduno DO [address] [place], [place] [id number] PCP - General 04/15/24 documented as of this encounter
--- OUTSIDE RECORDS SUMMARY | 2025-05-06 09:42 | XMS_ITS | Encounter Summary ---
Author Organization [facility] Address [address] [place] [address] Care Team Providers Care Field Crops Harvest Machine Operator Name Role Phone Ольга Garduno Primary Care Provider Reason for Visit * Reason Comments Med Refill Encounter Details Date Type Department Care Team (Late st Contact Info) Description 07/30/2024 Refill [facility] [address] [place] [address] Nay Smith MD [address] [place] [address] Overactive bladder Social History Tobacco Use Types Packs/Day Years Used Date Smoking Tobacco: Every Day Cigarettes Smokeless Tobacco: Never Alcohol Use Standard Drinks/Week Comments Yes 0 [...] Present no 06/09/2023 PHQ-2 Answer Date Recorded Retired PHQ-9: Brief Depression Severity Measure Score 0 08/31/2023 Comments No Sex and Gender Information Value [...] encounter Miscellaneous Notes * Telephone Encounter - Marlee Johnson RegSched Rep - 07/30/2024 9:08 AM EST CALLED PT TO SET UP A FOLLOW UP FOR MEDICATION REFILL THAT WE GOT REQUESTED. THE PT SAID SHE HAS TRANSFERRED HER CARE OVER TO [facility]. documented in this encounter Plan of Treatment Upcoming Encounters Date Type Department Care Team (Late st Contact Info) Description 05/08/2025 11:45 AM EST Office Visit [facility] [address] [place] [address] Ольга Garduno DO [address] [place] [address] 01/27/2026 8:30 AM EDT Office Visit [facility] [address] [place] [address] [place] [address] [place] [address] documented as of this encounter Visit Diagnoses Diagnosis Overactive bladder Hypertonicity of bladder documented in this encounter Care Teams Field Crops Harvest Machine Operator Relationship Specialty Start Date End Date Ольга Garduno DO [address] [place] [address] PCP - General Family Medicine 05/18/21 documented as of this encounter
--- OUTSIDE RECORDS SUMMARY | 2025-05-06 09:42 | XMS_ITS | Encounter Summary ---
Author Organization [facility] Address [address] 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 RN called patient to complete pre-infusion screening questions. Any side effects after last infusion appt? no Have you been sick recently? no Have you been on antibiotics recently or taking them currently? no Have you been admitted to the hospital or evaluated in the ER recently? no Any new diagnoses? no Have you seen your provider since last infusion? Yes If so, did they want to change medication or dose? No No lab review specified in therapy plan Has your insurance changed since last visit? no For patients prescribed Prolia (denosumab), Evenity (romosozumab), Boniva (ibandronate), or Reclast(zoledronic acid): Any recent or upcoming dental work? N/A N/A At time of screening, patient is appropriate to receive Vyepti infusion. Confirmed date, time, and location of appt with patient.. Interventions: None. Duration of phone call: 3 minutes Yola Wallace RN [facility] documented in this encounter Plan of Treatment Upcoming Encounters Date Type Department Care Team (Late st Contact Info) Description 05/07/2025 3:00 PM EST Procedure Visit [facility] [address], [address]st [place] [address] Aaron Garcia PA [address] [place] [address] 06/15/2025 3:00 PM EST Office Visit [facility] [address] [place] [address] oCni Hamm MD [address] [place] [address] 07/03/2025 10:40 AM EST Office Visit [facility] [address], [address] [place] [address] Delia Cleary PA [address] [place] [address] 09/01/2025 12:20 PM EDT Office Visit [facility] Medicine Specialties [address], [address] [place] [address] Selene Rayo MD [address] [facility] [address] [place] [address] documented as of this encounter [...] documented as of this encounter Care Teams Line Up Examiner Relationship Specialty Start Date End Date Ольга Garduno DO [address] [place] [address] PCP - General 04/15/24 documented as of this encounter
--- OUTSIDE RECORDS SUMMARY | 2025-05-06 09:42 | XMS_ITS | Clinical Summary ---
Author Organization [facility] Address [address] [place] [address] Care Team Providers Care Trousseau Consultant Name Role Phone Laureen Ольга Lott DO Primary Care Provider [phone] Allergies Active Allergy Reactions Criticality Noted Date Comments Latex Hives,Itching,Rash Medium 2024 Morphine Diarrhea,Headache,Nausea Low 02/16/2025 Sulfa Drugs Anxiety,Headache,Hiv es,Nausea,Palpitat ions,Unknown - Patient states they do not know rxn details,Rash Medium 03/19/2023 Sumatriptan Palpitations,Hives Medium 03/16/2016 Medications traZODone (Desyrel) 50 MG tablet Take by mouth. Activ e pantoprazole (Protonix) 40 MG EC tablet Take 1 tablet by mouth 1 time each day. 03/17/20 24 Active FLUoxetine (PROzac) 40 MG capsule Take 1 capsule by mouth 1 time each day. 03/20/20 24 Active Trospium Chloride ER 60 MG capsule sustained-release 24 hr Take by mouth 1 (one) time each day. 06/27/19 25 Active Lo Loestrin Fe 1 MG-10 MCG / 10 MCG tablet 06/19/19 20 Active ubrogepant (Ubrelvy) 100 MG tablet Take 1 tablet by mouth as needed for migraine. After 2 hours, a second dose may be taken if needed. Maximum dose: 200 mg in 24-hour period. 10 each 11 09/18/19 25 Active linaCLOtide (Linzess) 145 MCG capsule Take 1 capsule by mouth daily before breakfast. 30 capsule 11 11/06/19 25 026 Active cyproheptadine (Periactin) 4 MG tablet Take 1 tablet by mouth 2 times a day. 180 tablet 4 11/22/19 25 026 Active tiZANidine (Zanaflex) 2 MG tabletIndications: Myofascial neck pain TAKE 1 TABLET BY MOUTH IN THE MORNING AND BEFORE BEDTIME 60 tablet 2 12/21/19 25 Active bisacodyl (Dulcolax) 10 MG suppository Insert 1 suppository into the rectum daily. Use as directed 12 suppository 12/24/19 25 026 Active Additional Information Patient taking differently:10 mg RectalAs needed, Use as directed, Reported on 03/17/2025 eptinezumab (Vyepti) 100 MG/ML injection Infuse 3 mL into a venous catheter every 3 months. 1 each 3 12/24/19 25 Active difluprednate (Durezol) 0.05 % ophthalmic emulsion Administer 1 drop into the right eye 4 times a day. Increase durezol to one drop 4x/day right eye beginning 1 week prior to cataract surgery 15 mL 1 01/31/20 25 Active erythromycin (Romycin) 5 MG/GM ophthalmic ointment Apply 1 Application to right eye 3 times a day. 3.5 g 1 02/17/20 25 Active ondansetron ODT (Zofran-ODT) 4 MG disintegrating tablet Dissolve 1 tablet on the tongue every 8 hours as needed for nausea or vomiting. 20 tablet 2 02/25/20 25 Active dicyclomine (Bentyl) 10 MG capsule Take 1 capsule by mouth 3 times a day. As needed for abdominal cramping 90 capsule 2 02/25/20 25 Active Adalimumab-adaz (Hyrimoz) 40 MG/0.4ML solution auto-injectorIndic ations:Panuveitis, unspecified laterality Inject 40 mg under the skin every 14 days. 0.8 mL 3 03/05/20 25 Active tiZANidine (Zanaflex) 4 MG tablet Take 1 tablet by mouth 2 times a day as needed for muscle spasms. Use every night. 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 Also notes improvement with stimulant laxative. Will write for bisacodyl 10 mg [place] up to daily. Refer for ARM. May benefit from pelvic floor therapy. Continue linactolide 145 mcg daily. Migraine 10/01/2023 Assessment & Plan (12/29/2024 9:17 AM EDT): Plans to start new medication with neurologist-Te,. 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 Continue cyproheptadine per above. 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 She will notify me if current dose is not effective and will increase to 25 mg Dyspnea 03/09/2020 Viral disease 03/09/2020 Abdominal pain 11/21/2019 Assessment & Plan (12/29/2024 9:17 AM EDT): Resume cyproheptadine, education on slow ramp up to improve tolerability. May help with headaches and has helped with GI pain. Abdominal migraine and cyclic vomiting as well as functional abdominal pain (DGBI diagnosis) are on differential. She has episodic severe pain which is separate from her constipation symptoms. Complete enterography as I am only able to comment that she does not have active Crohn disease on adalimumab. May have sequelae of prior inflammation in small bowel so look forward to results of enterography as bloating may be related to history of stricturing disease. Chronic idiopathic constipation 07/16/2019 Resolved Problems Problem Noted Date Diagnosed Date Resolved Date Alpha 1-antitrypsin PiMS phenotype 02/12/2025 02/12/2025 Nkzhl-5-dweorvpftlp deficiency 02/12/2025 02/12/2025 Cigarette smoker 02/12/2025 02/12/2025 Hyperlipidemia 02/12/2025 02/12/2025 Overweight with body mass in dex (BMI) 25.0-29.9 02/12/2025 02/12/2025 Joint pain in both hands 01/02/202504/2025 Overview (02/12/2025): In both hands, arms, legs (especially shins) Nausea and vomiting 10/02/2024 02/23/20 Pain in lower back 09/02/2024 Overview (02/12/2025): Radiates from right above my butt crack around to lower stomach. Colitis 08/07/2024 02/22/2025 Abdominal pain, vomiting, and diarrhea 2024 02/22/2025 Overactive bladder 09/28/2023 Recurrent UTI 05/18/2021 02/22/2025 Urinary tract infectious disease 04/29/2020 02/22/2025 Viral upper respiratory tract infection 04/29/2020 02/22/2025 Encounters Date Type Department Care Team Description 04/22/2025 Travel 04/16/2025 3:00 PM EST - 04/16/2025 11:59 PM [facility] Hospital Encounter [facility] [address] [place] [phone] Migraine without aura and without status migrainosus, not intractable (Primary Dx); Migraine without aura, not refractory Discharge Disposition: Home or Self Care 04/16/2025 Travel 04/15/2025 Telephone [facility] [address] [place] [address] Yola Wallace RN 03/27/2025 3:50 PM EDT Office Visit [place] [facility] [address] [place] [address] Delia Cleary, PA Myofascial neck pain (Primary Dx); Bilateral occipital neuralgia; Migraine without aura and without status migrainosus, not intractable 03/27/2025 Orders Only [facility] [address] [place] [address] Lorena Manuel DO Pain in left barriga (Primary Dx); Pain in right barriga 03/26/2025 Travel 03/23/2025 Travel 03/17/2025 3:50 PM EDT Ancillary Procedure [facility] [address], [address] [place] [address] 03/17/2025 3:30 PM EDT Office Visit [facility] [place] [address], [address] [place] [address] Coni Hamm MD Intermediate uveitis of right eye (Primary Dx); Pseudophakia of right eye; Nuclear sclerotic cataract, left 03/17/2025 Travel 03/16/2025 Telephone [facility] [address] [place] [address] Reza Sharpe MD 03/15/2025 Travel 03/05/2025 10:45 AM EDT Office Visit [facility] [address] [place] [address] Lorena Manuel DO Chest pain, unspecified type (Primary Dx) 03/05/2025 Telephone [facility] [address] [place] [address] Reza Sharpe MD 03/05/2025 Refill [facility] [address] [place] [phone] Antic, Lorena, DO Panuveitis, unspecified laterality 03/05/2025 Travel 03/05/2025 Refill [facility] [address] [place] [address] Reza Sharpe MD 03/04/2025 Travel 02/27/2025 Orders Only [facility] [address] [place] [address] Coni Hamm MD Oral candidiasis (Primary Dx) 02/26/2025 Orders Only [facility] [address] [place] [address] Coni Hamm MD Oral candidiasis (Primary Dx) 02/24/2025 Refill [facility] [address] [place] [address] Selene Rayo MD 02/23/2025 10:30 AM EDT Office Visit [facility] [address] [place] [address] Reza Sharpe MD Intermediate uveitis of right eye (Primary Dx); Post-operative state 02/23/2025 Travel 02/22/2025 Travel 02/20/2025 Telephone [facility] [address] [place] [address] Melissa Blount RN 02/17/2025 12:45 PM EDT Office Visit [facility] [address] [place] [address] Reza Sharpe MD Post-operative state (Primary Dx) 02/17/2025 12:43 AM EDT - 02/17/2025 2:23 AM EDT Emergency [facility] [address] [place] [address] Everette Martinez MD Irritation of right eye (Primary Dx) Discharge Disposition: Home or Self Care 02/17/2025 Travel 02/17/2025 Ophth Exam [facility] [address] [place] [address] Neymar Watts MD 02/16/2025 7:30 AM EDT - 02/16/2025 8:15 AM EDT Surgery [facility] [address] [place] [phone] Reza Sharpe MD PHACOEMULSIFICATION , CATARACT, ADULT [72690 (CPT ) +1 more] 02/16/2025 7:24 AM EDT Anesthesia Event [facility] [address] [place] [phone] Huseyin hZang MD 02/16/2025 5:44 AM EDT - 02/16/2025 9:00 AM EDT Hospital Encounter [facility] [address] [place] [phone] Reza Sharpe MD Secondary cataract of right eye, unspecified secondary cataract type (Primary Dx) Discharge Disposition: Home or Self Care 02/16/2025 Telephone [facility] [address] [place] [address] Neymar Watts MD 02/16/2025 Travel 02/12/2025 10:01 AM EDT - 02/12/2025 3:45 PM EDT Emergency [facility] [address] [place] [address] Micha Flaherty MD Dahlgren, Amy E, MD Chest pain, unspecified type (Primary Dx) Discharge Disposition: Home or Self Care 02/12/2025 8:15 AM EDT Office Visit [facility] [address] [place] [phone] Lorena Manuel DO Intermediate uveitis of right eye (Primary Dx) 02/12/2025 Refill [facility] [address] [place] [phone] Torrey Moran PharmD Panuveitis, unspecified laterality (Primary Dx) 02/12/2025 Travel 02/05/2025 Travel 02/04/2025 Telephone [facility] [address] [place] [address] Reza Sharpe MD from Last 3 Months Immunizations Immunization Administration Dates Next Due HPV 9-Valent 06/18/2023,12/11/2022,08/24/2022 Hep A, Adult 08/14/2018,01/28/2018 Influenza, Unspecified 02/13/2018 Influenza, live, intranasal 02/26/2013, 2 Meningococcal MCV4O 06/10/2012 Tdap 05/19/2019 Family History Medical History Relation Name Comments Autoimmune disease Brother Renato Cummings Colon polyps Brother Renato Cummings Crohn's disease Brother Renato Tsene Immunodeficiency Brother Renato Cummings Asthma Father Renato Myasthenia gravis Maternal Grandfather Cancer Maternal Grandmother Molly Mascorro Cataracts Maternal Grandmother Molly Mascorro Colon cancer Maternal Grandmother Molly Villavicencio [place] Dementia Maternal Grandmother Molly Villavicencio Subha Glaucoma Maternal Grandmother Molly Villavicencio [place] Macular degeneration Maternal Grandmother Molly Villavicencio Prem staton Migraines Maternal Grandmother Molly Mascorro Kidney disease Mother Mother Migraines Mother Mother Anxiety disorder Sister 1 Anu Autoimmune disease Sister 1 Anu Fibromyalgia Sister 1 Anu Immunodeficiency Sister 1 Anu ADD / ADHD Sister 2 Alia Relation Name Status Comments Brother Renato Cummings Alive Father Renato Maternal Grandfather Maternal Grandmother Molly Mascorro Mother Mother Sister 1 Anu Sister 2 Alia Alive Social History Tobacco Use Types Packs/Day [...] drink first 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 0 02/12/2025 CAGE Questionnaire Score 0 025 Comments No Sex and Gender Information Value Date Recorded Sex Assigned at Female 01/12/2025 11:46 PM EDT Legal Sex Female 8:10 PM EDT Gender Identity Female 01/12/2025 11:46 PM EDT Sexual Orientation Straight 01/12/2025 11 :46 PM EDT Last Filed Vital Signs Vital Sign Reading Time Taken Comments Blood Pressure 119/76 04/16/2025 4:04 PM EST Pulse 92 04/16/2025 4:04 PM EST Temperature 36.6 C (97.9 F) 04/16/2025 3:09 PM EST Respiratory Rate 16 04/16/2025 3:09 PM EST Oxygen Saturation 96% 03/05/2025 10: 50 AM EDT Inhaled Oxygen Concentration - - Weight 64.8 kg (142 lb 13.7 oz) 04/16/2025 3:09 PM EST Height 157.5 cm (5' 2 ) 04/16/2025 3:09 PM EST Body Mass Index 26.13 04/16/2025 3:09 PM EST Plan of Treatment Upcoming Encounters Date Type Department Care Team (Late st Contact Info) Description 05/07/2025 3:00 PM EST Procedure Visit [place] [facility] [address] [place] [address] Aaron Garcia, ELISA [address] [place] [address] 06/15/2025 3:00 PM EST Office Visit [facility] [address] [place] [address] Coni Hamm MD [address] [place] [address] 07/03/2025 10:40 AM EST Office Visit [facility] [address] [place] [address] Delia Cleary PA [address] [place] [address] 09/01/2025 12:20 PM EDT Office Visit [facility] [address], [address] [place] [address] Selene Rayo MD [address] [place] [address] Health Maintenance Due Date Last Done Comments [facility]-/Child/Adol SDOH Screenings 1993 [facility]- SDOH Screenings 08/07/2011 [facility]-Adult SDOH Screenings 08/07/2011 [facility]-Hepatitis B Vaccines (1 of 3 - 19+ 3-dose series) 2012 [facility]-Pneumococcal Vaccine: Pediatrics (0 to 5 Years) and At-Risk Patients (6 to 49 Years) (1 of 2 - PCV) 2012 [facility]-Varicella Vaccines (1 of 2 - 13+ 2-dose series) 03/26/2013 [facility]-HPV/Cotest 08/07/2023 [id number] Vaccine (1 - 2024- season) 2025 [facility]-Influenza Vaccine (#1) 02/02/202502/13, 02/26/2013, 05/02/2012 [facility]-Depression Screening 03/05/2026 03/05/2025, 07/2024 [facility]-Cervical Cancer Screening 01/22/2028 [facility]-Pap Smear 01/22/2028 01/21/2025, 01/02, 06/18/2023, Additional history exists [facility]-DTaP,Tdap,and Td Vaccines (2 - Td or Tdap) 05/19/2029 05/19/2019 [facility]-Zoster Vaccines (1 of 2) 08/07/2043 [facility]-Hepatitis A Vaccines Completed 08/14/2018, 01/03 HPV Vaccines Completed 06/18/2023, 12/02, 08/24/2022 [facility]-Hepatitis C Screening Completed 06/06/2024 [facility]-HIV Screening Completed 12/31/2024 [facility]-Obesity Intervention Completed 025, 03/27/2025, 03/17/2025, Additional history exists [facility]-HIB Vaccines Aged Out No longer e ligible based on patient's age to complete this topic [facility]-IPV Vaccines Aged Out No longer e ligible based on patient's age to complete this topic [facility]-Rotavirus Vaccines Aged Out No lo nger eligible based on patient's age to complete this topic Medical Devices Implanted Type Area Top Installer Device Identifier Shelf Expiration Date Model / Serial / Lot Lens Monofocal Clear [id number] 24.0 - [id number] Implanted:Qty: 1 on 02/16/2025 by Reza Sharpe MD at [facility] Right: Eye [id number] 09/28/2028 [id number].240 / [id number] / [id number] Procedures Procedure Name Priority Date/Time Associated Diagnosis Comments OCT, RETINA - OU - BOTH EYES Routine 03/17/2025 4:32 PM EDT Intermediate uveitis of right eye PB ANESTHESIA PLACEHOLDER Routine 02/16/2025 7:32 AM EDT [place] AN ELECTIVE SUPRAGLOTTIC AIRWAY Routine 02/16/2025 7:32 AM EDT [place] XCAPSL CTRC RMVL INSJ IO LENS PROSTH W/O ECP 02/16/2025 7:21 AM EDT Posterior subcapsular polar senile cataract of right eye [place] XCAPSL CTRC RMVL INSJ IO LENS PROSTH CPLX WO ECP 02/16/2025 7:21 AM EDT Posterior subcapsular polar senile cataract of right eye POCT , URINE Routine 02/16/2025 7:17 AM EDT XR CHEST 2 VIEWS STAT 02/12/2025 11:5 5 AM EDT LACTATE, VENOUS STAT 02/12/2025 10:52 AM EDT EXTRA TUBE GOLD TOP Routine 02/12/2025 1 0:51 AM EDT EXTRA TUBE GOLD TOP Routine 02/12/2025 1 0:51 AM EDT EXTRA TUBES Routine 02/12/2025 10:51 AM EDT MAGNESIUM, PLASMA STAT 02/12/2025 10: 51 AM EDT LIPASE, PLASMA STAT 02/12/2025 10:51 AM EDT C-REACTIVE PROTEIN, PLASMA STAT 02/12/2025 10:51 AM EDT TROPONIN T, HIGH SENSITIVITY, 0 HOUR, PLASMA, REFLEX TO 2 HOUR STAT 02/12/2025 10:51 AM EDT TEST QUALITATIVE PLASMA STAT 02/12/2025 10:51 AM EDT D DIMER, QUANTITATIVE STAT 02/12/2025 10:51 AM EDT PROTHROMBIN TIME(PT) / INR STAT 02/12/2025 10:51 AM EDT CBC WITH AUTO DIFFERENTIAL STAT 02/12/2025 10:51 AM EDT COMPREHENSIVE METABOLIC PANEL, PLASMA STAT 02/12/2025 10:51 AM EDT ECG ADULT STAT 02/12/2025 10:17 AM EDT ED HIV 1/2 ANTIBODY/ANTIGEN SCREEN WITH REFLEX TO HIV I/II DIFFERENTIATION STAT 12/31/2024 5:11 PM EDT ACUTE HEPATITIS PANEL Routine 06/06/2024 1:26 PM EST Intermediate uveitis of right eye from Last 3 Months or Most Recently Relevant to Health Maintenance Results * OCT, Retina - OU - [...] Hamm MD OPHTH TOMOGRAPHY Final Res ult * [place] AN ELECTIVE SUPRAGLOTTIC AIRWAY, PB ANESTHESIA PLACEHOLDER (02/16/2025 7:32 AM EDT) Narrative Jessica Khoury CRNA - 02/16/2025 7:32 AM EDT Jessica Khoury CRNA 02/16/2025 7:36 AM Airway Date/Time: 02/16/2025 7:32 AM Reason: elective Airway not difficult General Information and Staff Patient location during procedure: OR KITCHEN SUPERVISOR: Jessica Khoury CRNA Performed: KITCHEN SUPERVISOR Patient Condition Indications for airway management: anesthesia Patient position: sniffing MILS maintained throughout Final Airway Details Final airway type: LMALMA Size: 4 LMA Type: normal Huseyin Zhang MD ANESTHESIA ORDERABLES Fin al Result * POCT , URINE (02/16/2025 7:17 AM EDT) POCT Test, Urine Negative Males and Non- Females: Negative 02/16/2025 7:24 AM EDT [facility] Trolley Car Overhauler ID Cj Andrews 02/16/2025 7:24 AM EDT HEALTHCARE LAB Device ID [id number] 02/16/2025 7:24 AM EDT [facility]ARE [facility] Urine Urine specimen obtained by clean catch procedure / Unknown 02/16/2025 7:17 AM EDT 02/16/2025 7:24 AM EDT Reza Sharpe MD LAB POINT OF CARE T EST DOCKED DEVICE UNSOLICITED RESULTS Final Result [facility] [address] [place] [address] * XR Chest 2 Views (02/12/2025 11:55 AM EDT) Anatomical Region Laterality Modality Chest Computed Radiogr aphy Impressions 02/12/2025 3:29 PM EDT No acute findings. CRITICAL RESULT: No. COMMUNICATION: Per this written report. By electronically signing this report, I, the attending physician, attest that I have personally reviewed the images/data for the above examination(s) and agree with the final edited report. Drafted by Aditya Gonzalez MD on 02/12/2025 2:11 PM Final report signed by Vilma Campos MD on 02/12/2025 3:29 PM Narrative 02/12/2025 3:29 PM EDT CLINICAL INDICATION: chest pain TECHNIQUE: XR CHEST 2 VIEWS COMPARISON: None. FINDINGS: Cardiac silhouette and mediastinal contours are within normal limits. No consolidation, pleural effusions, or pneumothorax. No acute osseous abnormalities. Procedure Note Vilma Campos MD - 02/12/2025 CLINICAL INDICATION: chest pain TECHNIQUE: XR CHEST 2 VIEWS COMPARISON: None. FINDINGS: Cardiac silhouette and mediastinal contours are within normal limits. Noconsolidation, pleural effusions, or pneumothorax. No acute osseousabnormalities. IMPRESSION: No acute findings. CRITICAL RESULT: No. COMMUNICATION: Per this written report. By electronically signing this report, I, the attending physician, attestthat I have personally reviewed the images/data for the aboveexamination(s) and agree with the final edited report. Drafted by Aditya Gonzalez MD on 02/12/2025 2:11 PM Final report signed by Vilma Campos MD on 02/12/2025 3:29 PM us Virgil PÉREZ IMG XR PROCEDURES Final Result * Lactic acid, venous (02/12/2025 10:52 AM EDT) Lactate, Venous, Whole Blood 1.2 0.5 - 2.2 mmol/L LAB HEMATOLOGY METHOD 02/12/2025 11:10 AM EDT [facility] Blood Venous blood specimen / Unknown Venipuncture / Unknown 02/12/2025 10:52 AM EDT 02/12/2025 11:08 AM EDT us Virgil PÉREZ LAB BLOOD ORDERABLES Final Res ult Performing Organization Address City/[facility]/ZIP Co de Phone Number [facility] [address] [place] [address] * Gold Top (02/12/2025 10:51 AM EDT) Only the most recent of2 resultswithin the time period is included. Pathologist [facility] Extra Hold for add-ons 02/12/2025 2:01 PM EDT [facility] Comment:Auto resulted. Blood Venous blood specimen / Unknown 02/12/2025 10:51 AM EDT 02/12/2025 11:25 AM EDT us Micha Flaherty MD LAB BLOOD ORDERABLES Final Res ult [facility] [address] [place] [address] * Troponin now and 120 min (02/12/2025 10:51 AM EDT) Troponin T, High Sensitivity, 0 Hour <6 <14 ng/L 02/12/2025 11:33 AM EDT [facility] Blood Venous blood specimen / Unknown Venipuncture / Unknown 02/12/2025 10:51 AM EDT 02/12/2025 11:01 AM EDT Virgil PÉREZ LAB BLOOD ORDERABLES Final Res ult Performing Organization Address City/[facility]/ZIP Co de Phone Number [facility] [address] [place] [address] * D-Dimer, Quantitative (02/12/2025 10:51 AM EDT) D Dimer, Quantitative <0.28 <0.50 ug/mL FEU 02/12/2025 11:29 AM EDT [facility] Blood Venous blood specimen / Unknown Venipuncture / Unknown 02/12/2025 10:51 AM EDT 02/12/2025 11:00 AM EDT Narrative [facility] - 02/12/2025 11:29 AM EDT Test performed by STAGO D-dimer assay. Values greater than 0.50 ug/mL FEU should be evaluated for risk stratification of patients with possible venous thromboembolism. In addition to expected elevations following injury or surgery, D-dimer levels increase in normal and increase steadily with normal aging. Values in healthy individuals often exceed the VTE exclusion cutoff value, and should be considered in the clinical context. [facility] PÉREZ LAB BLOOD ORDERABLES Final Res ult Performing Organization Address [facility] Co de Phone Number [facility] [address] [place] [address] * PT-INR (02/12/2025 10:51 AM EDT) Prothrombin Time 13.3 12.0 - 14.3 sec 02/12/2025 11:28 AM EDT [facility] INR 1.0 0.9 - 1.1 02/12/2025 11:28 AM EDT [facility] Blood Venous blood specimen / Unknown Venipuncture / Unknown 02/12/2025 10:51 AM EDT 02/12/2025 11:00 AM EDT Narrative [facility] - 02/12/2025 11:28 AM EDT OPTIMAL INR RANGES FOR PATIENT ON ORAL ANTICOAGULANT THERAPY Prevention of venous thromboembolism INR 2.0 to 3.0 In patients with heart disease: Atrial fibrillation INR 2.0 to 3.0 Valvular heart disease INR 2.0 to 3.0 Tissue heart valves INR 2.0 to 3.0 Mechanical prosthetic valves INR 2.5 to 3.5 Prevention of recurrent NH INR 2.5 to 3.5 us Virgil PÉREZ LAB BLOOD ORDERABLES Final Res ult [facility] [address] [place] [address] * (ABNORMAL) CBC w/diff (02/12/2025 10:51 AM EDT) [facility] Signature WBC Count 7.17 3.70 - 10.30 10*3/uL LAB HEMATOLOGY METHOD 02/12/2025 11:06 AM EDT [facility] RBC Count 3.98 3.90 - 5.20 10*6/uL LAB HEMATOLOGY METHOD 02/12/2025 11:06 AM EDT [facility] HGB 12.4 11.2 - 15.7 g/dL LAB HEMATOLOGY METHOD 02/12/2025 11:06 AM EDT [facility] [facility] HCT 36.1 34.0 - 45.0 % LAB HEMATOLOGY METHOD 02/12/2025 11:06 AM EDT [facility] Platelet Count 330 155 - 369 10*3/uL LAB HEMATOLOGY METHOD 02/12/2025 11:06 AM EDT [facility] MCV 91 79 - 98 fL LAB HEMATOLOGY METHOD 02/12/2025 11:06 AM EDT [facility] MCH 31.2 26.0 - 32.0 pg LAB HEMATOLOGY METHOD 02/12/2025 11:06 AM EDT [facility] MCHC 34.3 30.7 - 35.5 g/dL LAB HEMATOLOGY METHOD 02/12/2025 11:06 AM EDT [facility] RDW 12.1 11.5 - 14.5 % LAB HEMATOLOGY METHOD 02/12/2025 11:06 AM EDT [facility] MPV 8.2(L) 8.8 - 12.5 fL LAB HEMATOLOGY METHOD 02/12/2025 11:06 AM EDT [facility] nRBC 0.0 <=0.0 per 100 WBCs LAB HEMATOLOGY METHOD 02/12/2025 11:06 AM EDT [facility] Differential Type Automated LAB HEMATOLOGY METHOD 02/12/2025 11:06 AM EDT [facility] Neutrophils % 66 % LAB HEMATOLOGY METHOD 02/12/2025 11:06 AM EDT [facility] Lymphocytes % 28 % LAB HEMATOLOGY METHOD 02/12/2025 11:06 AM EDT [facility] Monocytes % 6 % LAB HEMATOLOGY METHOD 02/12/2025 11:06 AM EDT [facility] Eosinophils % 0 % LAB HEMATOLOGY METHOD 02/12/2025 11:06 AM EDT [facility] Basophils % 0 % LAB HEMATOLOGY METHOD 02/12/2025 11:06 AM EDT [facility] Immature Granulocytes % 0 % LAB HEMATOLOGY METHOD 02/12/2025 11:06 AM EDT [facility] Neutrophils Absolute 4.76 1.60 - 6.10 10*3/uL LAB HEMATOLOGY METHOD 02/12/2025 11:06 AM EDT [facility] Lymphocytes Absolute 1.97 1.20 - 3.90 10*3/uL LAB HEMATOLOGY METHOD 02/12/2025 11:06 AM EDT [facility] Monocytes Absolute 0.41 0.30 - 0.90 10*3/uL LAB HEMATOLOGY METHOD 02/12/2025 11:06 AM EDT [facility] Eosinophils Absolute 0.00 0.00 - 0.50 10*3/uL LAB HEMATOLOGY METHOD 02/12/2025 11:06 AM EDT [facility] Basophils Absolute 0.01 0.00 - 0.10 10*3/uL LAB HEMATOLOGY METHOD 02/12/2025 11:06 AM EDT [facility] Immature Granulocytes Absolute 0.02 0.00 - 0.06 10*3/uL LAB HEMATOLOGY METHOD 02/12/2025 11:06 AM EDT [facility] Blood Venous blood specimen / Unknown Venipuncture / Unknown 02/12/2025 10:51 AM EDT 02/12/2025 11:01 AM EDT [facility] - 02/12/2025 11:06 AM EDT Therapeutic decision making should be based on absolute values, rather than percentages. us Virgil PÉREZ LAB BLOOD ORDERABLES Final Res ult [facility] [address] [place] [address] * C-Reactive protein (02/12/2025 10:51 AM EDT) CRP, Plasma <3.0 <=8.0 mg/L 02/12/2025 11:37 AM EDT [facility] Blood Venous blood specimen / Unknown Venipuncture / Unknown 02/12/2025 10:51 AM EDT 02/12/2025 11:01 AM EDT [facility] - 02/12/2025 11:37 AM EDT This CRP test is appropriate for assessment of infection, systemic inflammation and/or tissue injury. To assess cardiovascular disease risk order high sensitivity CRP (CRPH). us Virgil PÉREZ LAB BLOOD ORDERABLES Final Res ult Performing Organization Address [facility] Co de Phone Number [facility] [address] [place] [address] * hCG qualitative (02/12/2025 10:51 AM EDT) [facility] Test Negative Negative 02/12/2025 11:37 AM EDT [facility] Blood Venous blood specimen / Unknown Venipuncture / Unknown 02/12/2025 10:51 AM EDT 02/12/2025 11:01 AM EDT [facility] - 02/12/2025 11:37 AM EDT Reference Range: Males and non- females: Negative. Virgil PÉREZ LAB BLOOD ORDERABLES Final Res ult Performing Organization Address City/[facility]/ZIP Co de Phone Number [facility] [address] [place] [address] * Magnesium (02/12/2025 10:51 AM EDT) Magnesium, Plasma 2.2 1.9 - 2.4 mg/dL 02/12/2025 11:37 AM EDT [facility] Blood Venous blood specimen / Unknown Venipuncture / Unknown 02/12/2025 10:51 AM EDT 02/12/2025 11:01 AM EDT us Virgil PÉREZ LAB BLOOD ORDERABLES Final Res ult Performing Organization Address City/[facility]/ZIP Co de Phone Number [facility] [address] [place] [address] * Lipase (02/12/2025 10:51 AM EDT) Lipase, Plasma 47 19 - 63 U/L 02/12/2025 11:37 AM EDT [facility] Blood Venous blood specimen / Unknown Venipuncture / Unknown 02/12/2025 10:51 AM EDT 02/12/2025 11:01 AM EDT us Virgil PÉREZ LAB BLOOD ORDERABLES Final Res ult Performing Organization Address City/[facility]/ZIP Co de Phone Number [facility] [address] [place] [address] * CMP (02/12/2025 10:51 AM EDT) Glucose, Plasma 96 74 - 99 mg/dL 02/12/2025 11:37 AM EDT [facility] BUN, Plasma 14 7 - 21 mg/dL 02/12/2025 11:37 AM EDT [facility] Creatinine, Plasma 0.69 0.60 - 1.10 mg/dL 02/12/2025 11:37 AM EDT [facility] BUN/Creatinine Ratio 20 02/12/2025 11:37 AM EDT [facility] Sodium, Plasma 140 136 - 145 mmol/L 02/12/2025 11:37 AM EDT [facility] Potassium, Plasma 3.6 3.6 - 4.9 mmol/L 02/12/2025 11:37 AM EDT [facility] Chloride, Plasma 102 97 - 107 mmol/L 02/12/2025 11:37 AM EDT [facility] CO2, Plasma 24 22 - 29 mmol/L 02/12/2025 11:37 AM EDT [facility] Anion Gap 14 6 - 16 mmol/L 02/12/2025 11:37 AM EDT [facility] Total Calcium, Plasma 9.5 8.9 - 10.2 mg/dL 02/12/2025 11:37 AM EDT [facility] Total Protein 7.2 6.3 - 7.9 g/dL 02/12/2025 11:37 AM EDT [facility] Albumin, Plasma 4.4 3.5 - 5.2 g/dL 02/12/2025 11:37 AM EDT [facility] AST, Plasma 13 10 - 35 U/L 02/12/2025 11:37 AM EDT [facility] ALT, Plasma 15 10 - 35 U/L 02/12/2025 11:37 AM EDT [facility] Alkaline Phosphatase, Plasma 57 35 - 104 U/L 02/12/2025 11:37 AM EDT [facility] Total Bilirubin, Plasma 0.3 0.2 - 1.1 mg/dL 02/12/2025 11:37 AM EDT [facility] eGFRcr 119.2 mL/min/1.7 3m*2 02/12/2025 11:37 AM EDT [facility] Comment:Reported eGFRcr in m L/min/1.73m2 is based the CKD-EPI 2020 equation that does not use a race coefficient. Blood Venous blood specimen / Unknown Venipuncture / Unknown 02/12/2025 10:51 AM EDT 02/12/2025 11:01 AM EDT us Virgil PÉREZ LAB BLOOD ORDERABLES Final Res ult [facility] [address] [place] [address] * EKG now - STAT (adult) (02/12/2025 10:17 AM EDT) EKG DIAGNOSIS CLASS Abnormal MUSE ECG Ventricular Rate 68 BPM MUSE ECG Atrial Rate 68 BPM MUSE ECG [place] Interval 156 ms MUSE ECG QRSD Interval 82 ms MUSE ECG QT Interval 416 ms MUSE ECG QTC Interval 442 ms MUSE ECG P Kersey 51 degrees MUSE ECG R Kersey 70 degrees MUSE ECG T Wave Kersey 60 degrees MUSE ECG Diagnosis Normal sinus rhythm MUSE ECG Diagnosis Septal infarct versus changes due to misplaced V1 and V2 above 4th intercostal space MUSE ECG Diagnosis Abnormal ECG MUSE ECG Diagnosis MUSE ECG Diagnosis Confirmed by Aaron Harris ([id number]) on 02/13/2025 5:14:10 PM MUSE ECG 02/12/2025 10:1 7 AM EDT 02/13/2025 5:14 PM EDT Micha Flaherty MD ECG ORDERABLES Final Result MUSE ECG * ED HIV 1/2 Antibody/Antigen Screen w/Reflex to HIV 1/2 Differentiation (12/31/2024 5:11 PM EDT) Pathologist [facility] HIV 1 & 2 Antibody/Antigen Screen Non Reactive Non Reactive 12/31/2024 6:23 PM EDT [facility] Comment:Screening for HIV 1 & 2 antibodies, and P24 antigen is NONREACTIVE. No confirmatory testing is required. Blood Venous blood specimen / Unknown Venipuncture / Unknown 12/31/2024 5:11 PM EDT 12/31/2024 5:30 PM EDT us Michele Palmer DO LAB BLOOD ORDERABLES Final Resu lt [facility] [address] [place] [address] * Hepatitis panel, acute (06/06/2024 1:26 PM EST) Pathologist [facility] Hepatitis B Surf Antigen Negative Negative 06/06/2024 4:46 PM EST [facility] Hepatitis C Antibody Negative Negative 06/06/2024 4:46 PM EST [facility] Hepatitis A Antibody IgM Negative Negative 06/06/2024 4:46 PM EST [facility] Hepatitis B Core Antibody IgM Negative Negative 06/06/2024 4:46 PM EST [facility] Blood Venous blood specimen / Unknown Venipuncture / Unknown 06/06/2024 1:26 PM EST 06/06/2024 1:26 PM EST us Lorena Manuel DO LAB BLOOD ORDERABLES Final Resu lt [facility] [address] [place] [address] from Last 3 Months or Most Recently Relevant to Health [place] [address] ANTH DRUG COPAY ASSISTANCE Care Teams Trousseau Consultant Relationship Specialty Start Date End Date Ольга [place] [address] PCP - General 04/15/24
--- OUTSIDE RECORDS SUMMARY | 2025-05-06 09:42 | XMS_ITS | Clinical Summary ---
Author Organization [facility] Address [address] [place] [phone] Phone Care Team Providers Care Salesperson Wigs Name Role Phone Unavailable Primary Care Provider Unavailabl e Allergies Active Allergy Reactions Criticality Noted Date Comments Sumatriptan Hives Medium 07/16/2019 Sulfa (Sulfonamide Antibiotics) Hives Medium 07/05 Medications pantoprazole (PROTONIX) 40 mg Oral Tablet, Delayed Release (E.C.) Take 40 mg by mouth daily. Active citalopram (CELEXA) 20 mg Oral Tablet Take 20 mg by mouth daily. Active Norethindrn A-E Estradiol-Iron 1 mg-20 mcg (24)/75 mg (4) Oral Tablet Take 1 Tab by mouth daily. Active Active Problems Problem Noted Date Diagnosed Date Chronic idiopathic constipation 07/16/2019 Social History Tobacco Use Types Packs/Day Years Used Date Smoking Tobacco: Never Smokeless Tobacco: Never Sexually Active Control Partners Comments Yes Male Comments Unknown Sex and Gender Information Value Date Recorded Sex Assigned at Not on file Legal Sex Female 2:39 PM EST Gender Identity Not on file Sexual Orientation Not on file Last Filed Vital Signs Vital Sign Reading Time Taken Comments Blood Pressure 120/80 07/16/2019 8:43 AM EST Pulse 78 07/16/2019 8:43 AM EST Temperature - - Respiratory Rate - - Oxygen Saturation 96% 07/16/2019 8:43 AM EST Inhaled Oxygen Concentration - - Weight 67 kg (147 lb 9.6 oz) 07/16/2019 8:43 AM EST Height - - Body Mass Index - - Plan of Treatment Health Maintenance Due Date Last Done Comments Annual Wellness Exam 1996 Hepatitis B Vaccine (1 of 3 - 19+ 3-dose series) 2012 Cervical Cancer Screening 2014 Pap Smear 2014 HPV/Pap Cotest 08/07/2023 COVID-19 Vaccine ( - 2024-2 6 season) 2025 Influenza Vaccine (#1) 2025 DTaP/TDaP/Td (2 - Td or Tdap) 05/19/2029 05/19/2019 Meningococcal B Vaccine Aged Out No l onger eligible based on patient's age to complete this topic Pneumococcal Vaccine 0-49 Aged Out No longer eligible based on patient's age to complete this topic Insurance ANTHEM PPO ANTHEM PPO
--- OUTSIDE RECORDS SUMMARY | 2025-05-06 09:42 | XMS_ITS | Encounter Summary ---
Author Organization Healthcare Address [address] [place] [address] Care Team Providers Care Senior Market Research Analyst Name Role Phone Ольга Garduno DO Primary Care Provider [phone] Encounter Details Date Type Department Care Team (Late st Contact Info) Description 03/27/2025 [facility] Only [facility] [address] [place] [address] Lorena Manuel DO [address] [place] [address] Pain in left barriga (Primary Dx); Pain in right barriga Social History Tobacco Use Types Packs/Day Years [...] drink first t destini in the morning (EYE-GASTROENTEROLOGY TEACHER) to steady your nerves or to [...] Description 05/07/2025 3:00 PM EST Procedure Visit [facility] [address] [place] [phone] Aaron Garcia PA [address] [place] [address] 06/15/2025 3:00 PM EST Office Visit [facility] [address] [place] [address] Coni Hamm MD [address] [address] 07/03/2025 10:40 AM EST Office Visit [facility] [address], [address] [place] [address] Delia Cleary PA [address] [place] [phone] 09/01/2025 12:20 PM EDT Office Visit [facility] Medicine Specialties [address], [address] [place] [address] Selene Rayo MD [address] [place] [address] Scheduled Orders Name Type Priority Associated Diagnoses Orde r Schedule XR Tibia Fibula Right 2+ Views Imaging Routine Pain in right barriga Expected: 03/27/2025 (Approximate), Expires: 09/28/2026 XR Tibia Fibula Left 2+ Views Imaging Routine Pain in left barriga Expected: 03/27/2025 (Approximate), Expires: 09/28/2026 documented as of this encounter Visit Diagnoses Diagnosis Pain in left barriga- Primary Pain in right barriga Migraine without aura and without status migrainosus, [...] documented as of this encounter Care Teams Senior Market Research Analyst Relationship Specialty Start Date End Date Ольга [place] [address] PCP - General 04/15/24 documented as of this encounter
--- OUTSIDE RECORDS SUMMARY | 2025-05-06 09:42 | XMS_ITS | Encounter Summary ---
Author Organization [facility] Address [address] [place] [address] Care Team Providers Care Supervisor Belt And Link Assembly Name Role Phone Ольга Garduno DO Primary Care Provider [phone] Encounter Details Date Type Department Care Team (Latest Contact Info) Description 03/26/2025 Travel Social History Tobacco Use Types Packs/Day [...] drink first t destini in the morning (EYE-COMMUNITY YOUTH SECRETARY) to steady your nerves or to get [...] Description 05/07/2025 3:00 PM EST Procedure Visit [facility] [address] [place] [address] Aaron Garcia PA [address] [facility] [address] [place] [address] 06/15/2025 3:00 PM EST Office Visit [facility] [address] [facility] [place] [address] Coni Hamm MD [address] [facility] [address] [place] [address] 07/03/2025 10:40 AM EST Office Visit [facility] [address], [address] [place] [address] Delia Cleary PA [address] [place] [address] 09/01/2025 12:20 PM EDT Office Visit [facility] Medicine Specialties [address] [place] [address] Selene Rayo MD [address] [place] [address] documented as of this encounter [...] documented as of this encounter Care Teams Supervisor Belt And Link Assembly Relationship Specialty Start Date End Date Ольга Garduno DO [address] [place] [address] PCP - General 04/15/24 documented as of this encounter
--- OUTSIDE RECORDS SUMMARY | 2025-05-06 09:42 | XMS_ITS | Encounter Summary ---
Author Organization [facility] Address [address] [place] [address] Care Team Providers Care Development Technician Name Role Phone Ольга Garduno DO Primary Care Provider Encounter Details Date Type Department Care Team (Latest Contact Info) Description 03/23/2025 Travel Social History Tobacco Use Types Packs/Day [...] drink first t destini in the morning (EYE-INTERNAL CARVER) to steady your nerves or to get [...] Description 05/07/2025 3:00 PM EST Procedure Visit [facility] [address], [address] [place] [address] Aaron Garcia PA [address] [facility] [address] [place] [address] 06/15/2025 3:00 PM EST Office Visit [facility] [address] [facility] [place] [address] Coni Hamm MD [address] [facility] [address] [place] [address] 07/03/2025 10:40 AM EST Office Visit [facility] [address] [place] [address] Delia Cleary PA [address] [place] [address] 09/01/2025 12:20 PM EDT Office Visit [facility] Medicine Specialties [address] [place] [address] Selene Rayo MD [address] [place] [address] documented as of this encounter [...] documented as of this encounter Care Teams Development Technician Relationship Specialty Start Date End Date Ольга Garduno DO [address] [place] [address] PCP - General 04/15/24 documented as of this encounter
--- OUTSIDE RECORDS SUMMARY | 2025-05-06 09:42 | XMS_ITS ---
Author Organization [facility] Address [address] [place] [address] Care Team Providers Care Commercial Reporter Name Role Phone Laureen Ольга Lott DO Primary Care Provider [phone] Active Problems Problem Noted Date Diagnosed Date [...] laxative. Will write for bisacodyl 10 mg MS up to daily. Refer for ARM. May benefit from pelvic floor therapy. Continue linactolide 145 mcg daily. Migraine 10/01/2023 Assessment & Plan (12/29/2024 9:17 AM EDT): Plans to start new medication with neurologist-Te,. 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 Continue cyproheptadine per above. 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 Chronic idiopathic constipation 07/16/2019 Current Treatment and Therapy Plans No current plan information found. Other Current Plans Eptinezumab-jjmr (Vyepti)* Plan Start Date:01/22/2025 Plan Provider:Delia Cleary PA Linked Problems Migraine without aura and wi thout status migrainosus, not intractable Treatment Medications No medications scheduled. Line Care (Peripheral)* Plan Start Date:01/22/2025 Plan Provider:Delia Cleary PA Linked Problems Migraine without aura, not r efractory Treatment Medications No medications scheduled. 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
--- OUTSIDE RECORDS SUMMARY | 2025-05-06 09:42 | XMS_ITS | Encounter Summary ---
Author Organization [facility] Address [address] [place] [address] Care Team Providers Care Plumbing Designer Name Role Phone Ольга Garduno DO Primary Care Provider [phone] Encounter Details Date Type Department Care Team (Latest Contact Info) Description 03/17/2025 Travel Social History Tobacco Use Types Packs/Day [...] drink first t destini in the morning (EYE-BACTERIOLOGY TEACHER) to steady your nerves or to [...] Description 05/07/2025 3:00 PM EST Procedure Visit [facility] [address] [place] [address] Aaron Garcia PA [address] [facility] [address] [place] [address] 06/15/2025 3:00 PM EST Office [facility] [address] [place] [address] Coni Hamm MD [address] [facility] [address] [place] [address] 07/03/2025 10:40 AM EST Office Visit [facility] [address] [place] [address] Delia Cleary PA [address] [place] [address] 09/01/2025 12:20 PM EDT Office Visit [facility] Medicine Specialties [address], [address] [place] [address] Selene Rayo MD [address] [place] [address] documented as of this encounter [...] documented as of this encounter Care Teams Plumbing Designer Relationship Specialty Start Date End Date Ольга Garduno DO [address] [place] [address] PCP - General 04/15/24 documented as of this encounter
--- OUTSIDE RECORDS SUMMARY | 2025-05-06 09:42 | XMS_ITS | Clinical Summary ---
Author Organization [facility] Address [address] [facility] [address] [place] [address] Care Team Providers Care Coding Quality Coordinator Name Role Phone Ольга Garduno Primary Care Provider [phone] Social History Tobacco Use Types Packs/Day Years Used Date Smoking Tobacco: Never Assessed Comments Unknown Sex and Gender Information Value Date Recorded Sex Assigned at Not on file Legal Sex Female 9:17 AM EDT Gender Identity Not on file Sexual Orientation Not on file Plan of Treatment Health Maintenance Due Date Last Done Comments HIV Screening 1993 Hepatitis C Screening 1993 Lipid Panel 1993 MMR Vaccines (1 of 1 - Standard series) 1994 Varicella Vaccines (1 of 2 - 13+ 2-dose series) 2006 Hepatitis B Screening 08/07/2011 DTaP/Tdap/Td Vaccines (1 - Tdap) 2012 Hepatitis B Vaccines (1 of 3 - 19+ 3-dose series) 2012 Pap Smear 2014 HPV Vaccines (1 - 3-dose SCD M series) 2020 Cervical Cancer Screening 08/07/2023 HPV/Cotest 08/07/2023 Depression Risk Screening 06/04/2024 SDOH Screening 06/04/2024 COVID-19 Vaccine ( - 2024-2 6 season) 2025 Influenza Vaccine (#1) 2025 3, 05/02/2012 Zoster Vaccines (1 of 2) 08/07/2043 HIB Vaccines Aged Out No longer eligi ble based on patient's age to complete this topic Hepatitis A Vaccines Aged Out No long er eligible based on patient's age to complete this topic IPV Vaccines Aged Out No longer eligi ble based on patient's age to complete this topic Meningococcal B Vaccine Aged Out No l onger eligible based on patient's age to complete this topic Meningococcal Vaccine Aged Out No bernabe jennifer eligible based on patient's age to complete this topic Pneumococcal Vaccine Aged Out No long er eligible based on patient's age to complete this topic Rotavirus Vaccines Aged Out No longer eligible based on patient's age to complete [place] [address] ANTH Care Teams Coding Quality Coordinator Relationship Specialty Start Date End Date Ольга Garduno DO [address] [facility] [place] [address] PCP - General Family Medicine 08/02/24
--- OUTSIDE RECORDS SUMMARY | 2025-05-06 09:42 | XMS_ITS | Encounter Summary ---
Author Organization [facility] Address [address] [place] [address] Care Team Providers Care Cloth Washer Name Role Phone Ольга Garduno DO Primary Care Provider [phone] Encounter Details Date Type Department Care Team (Latest Contact Info) Description 04/16/2025 Travel Social History Tobacco Use Types Packs/Day [...] drink first t destini in the morning (EYE-CAR GROOMER) to steady your nerves or to get [...] Description 05/07/2025 3:00 PM EST Procedure Visit [facility] [address] [place] [address] Aaron Garcia PA [address] [facility] [address] [place] [address] 06/15/2025 3:00 PM EST Office Visit [facility] [address] [place] [address] Coni Hamm MD [address] [facility] [address] [place] [address] 07/03/2025 10:40 AM EST Office Visit [facility] [address] [place] [address] Delia Cleary PA [address] [place] [address] 09/01/2025 12:20 PM EDT Office Visit [facility] Medicine Specialties [address] [place] [address] Selene Rayo MD [address] [place] [address] documented as of this encounter [...] documented as of this encounter Care Teams Cloth Washer Relationship Specialty Start Date End Date Ольга Garduno DO [address] [place] [address] PCP - General 04/15/24 documented as of this encounter
--- OUTSIDE RECORDS SUMMARY | 2025-05-06 09:43 | XMS_ITS | Encounter Summary ---
Author Organization Healthcare Address [address] [place] [address] Care Team Providers Care Ampoule Washing Machine Operator Name Role Phone Laureen Ольгаkacie Lott DO Primary Care Provider [phone] Encounter Details Date Type Department Care Team (Late st Contact Info) Description 03/16/2025 Telephone IR [facility] [address] [place] [address] Reza Sharpe MD [address] [address] Social History Tobacco Use Types Packs/Day Years [...] drink first t destini in the morning (EYE-SALES LEADER) to steady your nerves or to get [...] encounter Miscellaneous Notes * Telephone Encounter - Pau Box - 03/16/2025 8:39 AM EDT Clinical Concern/Question Reason for Call: Asking for her post op appointment on 03/19 to be as late in the afternoon as possible Best contact number: [phone] (mobile) Optimal time of day to reach caller: ANYTIME Additional comments/information from caller: None Note: Please do not reply to this message. Follow-up communication and further actions as a result of this message need to be communicated with the patient directly, if the patient is not active onMyChart. If the patient is active on MyChart, they will receive notification of the communication/outcome via MyChart. documented in this encounter Plan of Treatment Upcoming Encounters Date Type Department Care Team (Late st Contact Info) Description 05/07/2025 3:00 PM EST Procedure Visit [place] [facility] [address], [address] [place] [address] Aaron Garcia, ELISA [address] [place] [address] 06/15/2025 3:00 PM EST Office Visit [facility] [address] [place] [address] Coni Hamm MD [address] [place] [address] 07/03/2025 10:40 AM EST Office Visit [facility] [address] [place] [address] Delia Cleary PA [address] [place] [address] 09/01/2025 12:20 PM EDT Office Visit [facility] [address], [address] [place] [address] Selene Rayo MD [address] [place] [address] documented as of this encounter Visit Diagnoses Not on filedocumented in this encounter Additional Health Concerns Assessment Noted Time PHQ-9 Depression Total Score: 0 03/05/20 25 10:53 AM EDT A fall risk assessment has been complete d for the patient 03/05/2025 10:53 AM EDT A Body Mass Index follow-up plan has been documented for the patient 03/05/2025 12:02 PM EDT documented as of this encounter Care Teams Ampoule Washing Machine Operator Relationship Specialty Start Date End Date Ольга Garduno DO [address] [place] [address] PCP - General 04/15/24 documented as of this encounter
--- OUTSIDE RECORDS SUMMARY | 2025-05-06 09:43 | XMS_ITS | Encounter Summary ---
Author Organization Healthcare Address [address] [place] [address] Care Team Providers Care Relief Pilot Name Role Phone Ольга Garduno DO Primary Care Provider [phone] Encounter Details Date Type Department Care Team (Late st Contact Info) Description 02/17/2025 Ophth Exam [facility] [address] [place] [address] Neymar Watts MD [address] [place] [address] Social History Tobacco Use Types Packs/Day Years Used Date Smoking Tobacco: Every Day Cigarettes 0.3 18.4 Started: 06/04/2009 Passive Smoke Exposure: Current Smokeless Tobacco: Never Comments:Vape sometimes Alcohol Use Standard Drinks/Week Comments Yes 0 (1 standard drink = 0.6 oz pur e alcohol) socially 1-2 a month PHQ-2 Answer Date Recorded Patient Health Questionnaire-2 Score 0 12/23/2024 PHQ-9 Answer Date Recorded Patient Health Questionnaire-9 Score 0 12/23/2024 CAGE ASSESSMENT Answer Date Recorded Cage unable [...] drink first t destini in the morning (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 0 02/12/2025 CAGE Questionnaire Score 0 025 Comments No Sex and Gender Information Value Date Recorded Sex Assigned at Female 01/12/2025 11:46 PM EDT Legal Sex Female 8:10 PM EDT Gender Identity Female 01/12/2025 11:46 PM EDT Sexual Orientation Straight 01/12/2025 11 :46 PM EDT documented as of this encounter Functional Status * Calculated C-SSRS Risk Score (Lifetime/Recent) Answer Date of Assessment Author No Risk Indicated 02/17/2025 1:01 AM EDT Virgil Landry RN * Question Answer Date of Assessment Author 1. Wish to be (Past 1 Month) No 02/17/2025 1:01 AM EDT Virgil Robles RN 2. Non-Specific Active Suici jose Thoughts (Past 1 Month) No 02/17/2025 1:01 AM EDT Meghan Robles RN 6. Suicidal Behavior (Lifetime) No 1:01 AM LUIZT Virgil Robles RN documented as of this encounter Plan of Treatment Upcoming Encounters Date Type Department Care Team (Late st Contact Info) Description 05/07/2025 3:00 PM EST Procedure Visit [place] [facility] [address], [address] [place] [address] Aaron Garcia PA [address] [place] [address] 06/15/2025 3:00 PM EST Office Visit [facility] [address] [address] Coni Hamm MD [address] [place] [address] 07/03/2025 10:40 AM EST Office Visit [facility] [facility] [address], [address] [place] [address] Delia Cleary PA [address] [place] [address] 09/01/2025 12:20 PM EDT Office Visit [facility] Specialties [address] [place] [address] Selene Rayo MD [address] [facility] [address] [place] [address] documented as of this encounter Visit Diagnoses Not on filedocumented in this encounter Additional Health Concerns Assessment Noted Time PHQ-9 Depression Total Score: 0 12/24/19 25 9:14 AM EDT A fall risk assessment has been complete d for the patient 02/12/2025 8:23 AM EDT A Body Mass Index follow-up plan has been documented for the patient 02/17/2025 1:59 PM EDT documented as of this encounter Care Teams Relief Pilot Relationship Specialty Start Date End Date Ольга Garduno DO [address] [place] [address] PCP - General 04/15/24 documented as of this encounter
--- OUTSIDE RECORDS SUMMARY | 2025-05-06 09:43 | XMS_ITS | Encounter Summary ---
Author Organization Healthcare Address [address] 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 Question Answer Date of Assessment Author Little interest or pleasure in doing things Not at all 03/05/2025 10:53 AM LUIZT Meliton Damon Feeling down, depressed, or hopeless Not at all 03/05/2025 10:53 AM Meliton De Jesus Patient Health Questionnaire -2 Score 0 03/05/2025 10:53 AM Meliton De Jesus * Question Answer Date of Assessment Author Trouble falling or staying a sleep, or sleeping too much Not at all 03/05/2025 10:53 AM Meliton De Jesus Feeling tired or having duy le energy Not at all 03/05/2025 10:53 AM Meliton De Jesus Poor appetite or overeating Not at all 03/05/2025 10 :53 AM EDMeliton Allen Feeling bad about yourself - or that you are a failure or have let yourself or your family down Not at all 03/05/2025 10:53 AM Meliton Nathan Trouble concentrating on thi ngs, such as reading the newspaper or watching television Not at all 03/05/2025 10:53 AM Meliton De Jesus Moving or speaking so slowly that other people could have noticed? Or the opposite - being so fidgety or restless that you have been moving around a lot more than usual. Not at all 03/05/2025 10:53 AM EDT Meliton Damon Thoughts that you would be b gus off or hurting yourself in some way Not at all 03/05/2025 10:53 AM EDT Meliton Damon Patient Health Questionnaire -9 Score 0 03/05/2025 10:53 AM EDT Meliton Damon * How difficult have these problems made it for you to do your work, take care of things at home, or get along with other people? Answer Date of Assessment Author Not difficult at all 03/05/2025 10:53 AM EDT Meliton Burns documented as of this encounter Miscellaneous Notes * Telephone Encounter - Neyda Murillo - 03/09/2025 9:50 AM EDT Triage Note 03/09/2025 9:50 AM Provided clarification upon recent concerns. * Telephone Encounter - Pau Box - 03/05/2025 2:00 PM EDT Clinical Concern/Question Reason for Call: Patient asking about already been on Prednisone and received another Rx for the same medication (28 day supply) Best contact number: [phone] (mobile) Optimal time of day to reach [...] Visit [place] [facility] [address] [place] [address] Aaron Garcia PA [address] [place] [address] 06/15/2025 3:00 PM EST Office Visit [facility] [address] [place] [address] Coni Hamm MD [address] [place] [address] 07/03/2025 10:40 AM EST Office Visit [place] [facility] [address] [place] [address] Delia Cleary PA [address] [place] [address] 09/01/2025 12:20 PM EDT Office Visit [facility] [address] [place] [address] Selene Rayo MD [address] [place] [address] documented as of this encounter [...] documented as of this encounter Care Teams Robot Technician Relationship Specialty Start Date End Date Ольга Garduno DO [address] [place], [place] [id number] PCP - General 04/15/24 documented as of this encounter
--- OUTSIDE RECORDS SUMMARY | 2025-05-06 09:43 | XMS_ITS | Clinical Summary ---
Author Organization [facility] [place] [address] Care Team Providers Care School Laboratory Technician Name Role Phone Ольга Garduno Primary Care Provider [phone] Allergies Active Allergy Reactions Criticality Noted Date Comments Latex Rash Low 08/08/2024 Sulfa Antibiotics Rash Low 08/08/2024 Sumatriptan Hives,Palpitations Medium 03/16/2016 Medications Adalimumab-adaz 40 MG/0.4ML JIM A-IJ Inject 40 mg into the skin every 14 (fourteen) days. 5 Active albuterol HFA 108 (90 Base) MCG/ACT inhaler Inhale 2 puffs into the lungs every 4 (four) hours as needed. 3 Active FLUoxetine (PROZAC) 40 MG capsule Take 40 mg by mouth daily. 4 Active Galcanezumab-gnlm (EMGALITY) 120 MG/ML JIM A-IJ Inject 120 mg into the skin every 30 (thirty) days. 5 Active ondansetron (ZOFRAN-ODT) 4 MG disintegrating tablet Take 1 tablet by mouth every 8 (eight) hours as needed. Active pantoprazole (PROTONIX) 40 MG tablet Take 1 tablet by mouth daily. 4 Active ubrogepant (UBRELVY) 100 MG TABS tablet Take 100 mg by mouth as needed for Migraine. 4 Active Difluprednate (DUREZOL) 0.05 % EMUL Apply 1 drop to eye 2 (two) times daily Right eye. Active trospium (SANCTURA XR) 60 MG CAP SR24 Take 60 mg by mouth daily. 5 Active pravastatin (PRAVACHOL) 20 MG tablet Take 1 tablet by mouth daily. 5 Active Norethin-Eth Estrad-Fe Biphas (LO LOESTRIN FE) 1 MG-10 MCG / 10 MCG TABS Take 1 tablet by mouth daily. 0 Active linaclotide (LINZESS) 145 MCG capsule Take by mouth before breakfast. Active dicyclomine (BENTYL) 10 MG capsule Take 1 capsule by mouth four times daily as needed (abdominal cramping). 30 capsule 08/13/2024 10:00 AM EDT 5 Active traZODone (DESYREL) 50 MG tablet Take 1 tablet by mouth nightly. 20 tablet 08/13/2024 10:00 AM EDT 5 Active Active Problems Problem Noted Date Diagnosed Date GI bleed 08/08/2024 Social History Tobacco Use Types Packs/Day Years Used Date Smoking Tobacco: Every Day Cigarettes 0.5 16.9 Started: 2008 Smokeless Tobacco: Never Tobacco Cessation:Ready to Q uit: No; Counseling Given: No Comments Unknown Sex and Gender Information Value Date Recorded Sex Assigned at Not on file Legal Sex Female 10:19 AM EST Gender Identity Not on file Sexual Orientation Not on file Last Filed Vital Signs Vital Sign Reading Time Taken Comments Blood Pressure 107/67 08/13/2024 7:19 AM EDT Pulse 83 08/13/2024 7:19 AM EDT Temperature 36.6 C (97.9 F) 08/13/2024 7:19 AM EDT Respiratory Rate 16 08/13/2024 7:19 AM EDT Oxygen Saturation 98% 08/13/2024 7:19 AM EDT Inhaled Oxygen Concentration - - Weight 63.5 kg (140 lb) 08/08/2024 2:30 PM EST Height 157.5 cm (5' 2 ) 08/08/2024 2:30 PM EST Body Mass Index 25.61 08/08/2024 2:30 PM EST Plan of Treatment Health Maintenance Due Date Last Done Comments Hepatitis B (HepB) Vaccine ( 1 of 3 - 19+ 3-dose series) 2012 Cervical Cancer Screening 2014 Annual SDOH Screening 06/04/2024 Influenza Vaccine (#1) 2025 8, 02/26/2013, 05/02/2012 Tdap/Td Vaccine >11 yo (2 - Td or Tdap) 05/19/2029 05/19/2019 Meningococcal ACWY Completed 06/10/2012 Hepatitis A (HepA) Vaccine Aged Out 08/14, 01/28/2018 No longer eligible based on patient's age to complete this topic HPV Vaccine Completed 06/18/2023, 12/11/2022, 08/24/2022 Haemophilus Influenzae Type B (Hib) Vaccine Aged Out No longer eligible b ased on patient's age to complete this topic Pneumococcal Vaccines 6-49 y o Risk Aged Out No longer eligible b ased on patient's age to complete this topic Polio (IPV) Aged Out No longer eligi ble based on patient's age to complete this topic Rotavirus (RV) Vaccine Aged Out No lo nger eligible based on patient's age to complete [place] [address] [place] [address] [facility] Advance Directives * Full Code (Latest Code Status on File) Date Activated Date Inactivated Comments 08/08/2024 2:48 PM 08/13/2024 12:11 PM Care Teams School Laboratory Technician Relationship Specialty Start Date End Date Ольга Garduno DO [address] [address] PCP - General Emergency Medicine 08/11/24
--- OUTSIDE RECORDS SUMMARY | 2025-05-06 09:43 | XMS_ITS | Encounter Summary ---
Author Organization [facility] Address [address] 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 [address] [place] [address] Aaron Garcia PA [address] [facility] [address] [place] [address] 06/15/2025 3:00 PM EST Office Visit [facility] [address] [facility] [place] [address] Coni Hamm MD [address] [facility] [address] [place] [address] 07/03/2025 10:40 AM EST Office Visit [facility] [address] [place] [address] Delia Cleary PA [address] [place] [address] 09/01/2025 12:20 PM EDT Office Visit [facility] Medicine Specialties [address] [place] [address] Selene Rayo MD [address] [place] [address] documented as of this encounter [...] documented as of this encounter Care Teams Small Package And Bundle Sorter Clerk Relationship Specialty Start Date End Date Ольга Garduno DO [address] [place] [address] PCP - General 04/15/24 documented as of this encounter
[2025-05-07 18:10] LABS: Deamidated Gliadin Abs, IgA 3 units (0-19); Deamidated Gliadin Abs, IgG 4 units (0-19)
[2025-05-08 15:11] LABS: Saccharomyces cerevisiae, IgA <20.0 Units (0.0-24.9); Saccharomyces cerevisiae, IgG 62.4 Units (0.0-24.9)
== END 2025-05-06 23:59 | disposition home or self-care (01) ==
PROVIDERS: PCP Family Medicine; Visit Provider Internal Medicine Gastroenterology
DX: K58.9 Irritable bowel syndrome, unspecified (principal); H20.9 Unspecified iridocyclitis
CPT/HCPCS: 36415; 86231; 86256; 86258; 86364; 86671